=== PATIENT | male | born 1935 | race Caucasian/White ===

== ENCOUNTER 2022-07-01 12:34 | Inpatient (IN) | payer MEDICARE, BC ==
[~2022-07-01] VITALS: Ht 172.7 cm; Wt 94.5 kg
[2022-07-01 17:30] VITALS: BP 163/79
[2022-07-01] MEDS ORDERED: NITROGLYCERIN 0.4 MG SUBL TABLET SL PRN (17:35)
[2022-07-01] MEDS ORDERED: ALBUTEROL 90 MCG/ACT 8GM HFA INHALER INH PRN (17:35)
[2022-07-01] MEDS ORDERED: CLOPIDOGREL 75 MG TAB PO ONE (17:35)
[2022-07-01] MEDS ORDERED: OCUV1CAP4 PO (18:05)
[2022-07-01] MEDS ORDERED: ATOR80TA59 PO (18:05)
[2022-07-01] MEDS ORDERED: SYST1SOL OU (18:05)
[2022-07-01] MEDS ORDERED: CLOP75TA2 PO (18:05)
[2022-07-01] MEDS ORDERED: FINA5TAB2 PO (18:05)
[2022-07-01] MEDS ORDERED: STIO1AER INH (18:05)
[2022-07-01] MEDS ORDERED: ACET500T15 PO (18:05)
[2022-07-01] MEDS ORDERED: OMEP-173 PO (18:05)
[2022-07-01] MEDS ORDERED: NITR4TASL SL (18:05)
[2022-07-01] MEDS ORDERED: ASPI81TA26 PO (18:05)
[2022-07-01] MEDS ORDERED: SITA50TAB PO (18:05)
[2022-07-01] MEDS ORDERED: PROAAER10 INH (18:05)
[2022-07-01] MEDS ORDERED: METO25TA4 PO (18:05)
[2022-07-01] MEDS ORDERED: CENT1TAB PO (18:05)
[2022-07-01] MEDS ORDERED: DOCU100C16 PO (18:05)
[2022-07-01] MEDS ORDERED: SYST0.6S OU (18:05)
[2022-07-01] MEDS ORDERED: FLOM0.4C39 PO (18:05)
[2022-07-01] MEDS ORDERED: AMLO1TAB24 PO (18:05)
[2022-07-01] MEDS ORDERED: HOME MED LIST COMPLETE! XX SCH (18:10)
[2022-07-01 19:31] VITALS: BP 138/62
[2022-07-01] MEDS: METOPROLOL TART 25 MG TABLET PO SCH (20:56)
[2022-07-01] MEDS: NYSTATIN 500,000 U/5 ML SUSP UDC SS SCH (20:56)
[2022-07-01] MEDS: INSULIN LISPRO (NovoLOG) PER UNIT SC SCH (20:57)
[2022-07-02 06:13] VITALS: BP 144/58
[2022-07-02 06:20] LABS: APPEARANCE, URINE MANUAL HAZY (CLEAR); COLOR, URINE MANUAL YELLOW (YELLOW)
[2022-07-02 06:21] LABS: BILIRUBIN, URINE MANUAL NEGATIVE (NEGATIVE); BLOOD URINE MANUAL POSITIVE (NEGATIVE); GLUCOSE, URINE (UA) MANUAL 1+(100 MG/DL) mg/dL (NEGATIVE); KETONE, URINE MANUAL NEGATIVE (NEGATIVE); NITRITE, URINE MANUAL NEGATIVE (NEGATIVE); PROTEIN, URINE MANUAL 3+ mg/dL (NEGATIVE); UROBILINOGEN, URINE MANUAL NORMAL (NORMAL)
[2022-07-02 06:22] LABS: LEUKOCYTE ESTERASE, URINE MAN POSITIVE (NEGATIVE)
[2022-07-02 06:52] LABS: BASO % 0.2 % (0.0-1.0); EOS # 0.1 10^3/uL (0.0-0.5); EOS % 1.7 % (0.0-3.0); HEMATOCRIT 29.5 % (42.0-52.0); HEMOGLOBIN 10.3 g/dl (13.5-17.5); LYMPH # 0.9 10^3/uL (1.5-5.0); MEAN CORPUSCULAR HEMOGLOBIN 30.5 pg (27.0-33.0); MEAN CORPUSCULAR HGB CONC 34.9 g/dl (32.0-36.5); MEAN CORPUSCULAR VOLUME 87.3 fl (80.0-96.0); MONO # 0.1 10^3/uL (0.0-0.8); MONO % 2.9 % (2.0-8.0); NEUTROPHILS # 3.7 10^3/uL (1.5-8.5); NEUTROPHILS % 76.4 % (36.0-66.0); PLATELET COUNT, AUTOMATED 127 10^3/uL (150-450); RED BLOOD COUNT 3.38 10^6/uL (4.30-6.10); WHITE BLOOD COUNT 4.8 10^3/uL (4.0-10.0)
[2022-07-02 07:08] LABS: BACTERIA, URINE SMALL AMOUNT; HYALINE CAST, URINE NONE SEEN /lpf (0-1); SQUAMOUS EPITHELIAL CELL URINE SMALL AMOUNT /hpf (SMALL AMT)
[2022-07-02 07:10] LABS: TRANSITIONAL EPI CELLS, URINE SMALL AMOUNT /hpf
[2022-07-02 07:26] LABS: CALCIUM LEVEL 9.1 MG/DL (8.8-10.2); CREATININE FOR GFR 1.45 MG/DL (0.70-1.30); GLOMERULAR FILTRATION RATE 49.1 (>35); POTASSIUM SERUM 3.6 MEQ/L (3.5-5.1)
[2022-07-02] MEDS: FINASTERIDE 5MG TAB PO SCH (08:50)
[2022-07-02] MEDS: FOLIC ACID 1MG TAB PO SCH (08:50)
[2022-07-02] MEDS: OMEPRAZOLE 20MG CAP PO SCH (08:50)
[2022-07-02] MEDS: CLOPIDOGREL 75 MG TAB PO SCH (08:50)
[2022-07-02] MEDS: NYSTATIN 500,000 U/5 ML SUSP UDC SS SCH ×2 (08:50→21:24)
[2022-07-02] MEDS: amLODIPine 5 MG TAB PO SCH (08:50)
[2022-07-02] MEDS: SITagliptin 50 MG TAB (JANUVIA) PO SCH (08:50)
[2022-07-02] MEDS: METOPROLOL TART 25 MG TABLET PO SCH ×2 (08:51→21:24)
[2022-07-02] MEDS: INSULIN LISPRO (NovoLOG) PER UNIT SC SCH ×4 (08:52→21:00)
[2022-07-02] MEDS ORDERED: ENTER DRUG NAME HERE (PATIENT'S OWN MED) OU SCH (09:00)
[2022-07-02] MEDS: TAMSULOSIN 0.4 MG CAP PO SCH (09:37)
[2022-07-02] MEDS: MULTIVITAMINS/MINERALS THERAP 1 TAB PO SCH (09:37)
[2022-07-02] MEDS: ATORVASTATIN 20 MG TAB PO SCH (09:37)
[2022-07-02] MEDS: ASPIRIN 81MG ENTERIC TABLET PO SCH (09:37)
[2022-07-02] MEDS: OCUVITE 1 TAB PO SCH (12:10)
[2022-07-02] MEDS: POLYVINYL ALCOHOL OPHTH SOLN 15 ML(LIQUITEARS) OU SCH ×3 (12:10→21:25)
[2022-07-02] MEDS: STIOLTO RESPIMAT INH SCH (12:11)
[2022-07-02 14:00] VITALS: BP 155/72
[2022-07-02 20:00] VITALS: BP 163/77
[2022-07-03 06:00] VITALS: BP 161/80
[2022-07-03] MEDS ORDERED: FLEET OIL RETENTION ENEMA PR PRN (07:35)
[2022-07-03] MEDS: STIOLTO RESPIMAT INH SCH (09:00)
[2022-07-03] MEDS: FOLIC ACID 1MG TAB PO SCH (09:58)
[2022-07-03] MEDS: TAMSULOSIN 0.4 MG CAP PO SCH (09:58)
[2022-07-03] MEDS: amLODIPine 5 MG TAB PO SCH (09:58)
[2022-07-03] MEDS: CLOPIDOGREL 75 MG TAB PO SCH (09:58)
[2022-07-03] MEDS: LACTOBACILLUS ACIDOPHILUS CAP (BACID) PO SCH ×2 (09:58→17:13)
[2022-07-03] MEDS: ATORVASTATIN 20 MG TAB PO SCH (09:58)
[2022-07-03] MEDS: OMEPRAZOLE 20MG CAP PO SCH (09:58)
[2022-07-03] MEDS: MULTIVITAMINS/MINERALS THERAP 1 TAB PO SCH (09:58)
[2022-07-03] MEDS: FINASTERIDE 5MG TAB PO SCH (09:58)
[2022-07-03] MEDS: INSULIN LISPRO (NovoLOG) PER UNIT SC SCH ×4 (09:58→20:38)
[2022-07-03] MEDS: POLYVINYL ALCOHOL OPHTH SOLN 15 ML(LIQUITEARS) OU SCH ×3 (09:59→20:42)
[2022-07-03] MEDS: OCUVITE 1 TAB PO SCH (09:59)
[2022-07-03] MEDS: NYSTATIN 500,000 U/5 ML SUSP UDC SS SCH ×2 (09:59→20:42)
[2022-07-03] MEDS: METOPROLOL TART 25 MG TABLET PO SCH ×2 (09:59→20:42)
[2022-07-03] MEDS: ASPIRIN 81MG ENTERIC TABLET PO SCH (09:59)
[2022-07-03] MEDS: SITagliptin 50 MG TAB (JANUVIA) PO SCH (09:59)
[2022-07-03] MEDS: SIMETHICONE 40MG/0.6ML DROPS 30ML PO SCH ×2 (12:20→17:14)
[2022-07-03 14:04] VITALS: BP 156/82
[2022-07-03 20:27] VITALS: BP 160/76
[2022-07-03] MEDS: MIRALAX *UNIT DOSE* 17GM PACKET PO PRN (20:43)
[2022-07-04 05:32] VITALS: BP 150/76
[2022-07-04] MEDS: OMEPRAZOLE 20MG CAP PO SCH (08:16)
[2022-07-04] MEDS: MIRALAX *UNIT DOSE* 17GM PACKET PO PRN (08:16)
[2022-07-04] MEDS: MULTIVITAMINS/MINERALS THERAP 1 TAB PO SCH (08:16)
[2022-07-04] MEDS: LACTOBACILLUS ACIDOPHILUS CAP (BACID) PO SCH ×2 (08:16→17:12)
[2022-07-04] MEDS: METOPROLOL TART 25 MG TABLET PO SCH ×2 (08:16→20:35)
[2022-07-04] MEDS: FINASTERIDE 5MG TAB PO SCH (08:16)
[2022-07-04] MEDS: TAMSULOSIN 0.4 MG CAP PO SCH (08:16)
[2022-07-04] MEDS: ASPIRIN 81MG ENTERIC TABLET PO SCH ×2 (08:16→10:52)
[2022-07-04] MEDS: OCUVITE 1 TAB PO SCH (08:16)
[2022-07-04] MEDS: FOLIC ACID 1MG TAB PO SCH (08:16)
[2022-07-04] MEDS: SITagliptin 50 MG TAB (JANUVIA) PO SCH (08:16)
[2022-07-04] MEDS: POLYVINYL ALCOHOL OPHTH SOLN 15 ML(LIQUITEARS) OU SCH ×3 (08:17→20:35)
[2022-07-04] MEDS: NYSTATIN 500,000 U/5 ML SUSP UDC SS SCH ×2 (08:17→20:35)
[2022-07-04] MEDS: ATORVASTATIN 20 MG TAB PO SCH (08:17)
[2022-07-04] MEDS: amLODIPine 5 MG TAB PO SCH (08:17)
[2022-07-04] MEDS: INSULIN LISPRO (NovoLOG) PER UNIT SC SCH ×4 (08:17→20:30)
[2022-07-04] MEDS: CLOPIDOGREL 75 MG TAB PO SCH ×2 (08:17→10:52)
[2022-07-04] MEDS: SIMETHICONE 40MG/0.6ML DROPS 30ML PO SCH ×3 (08:18→17:12)
[2022-07-04] MEDS: STIOLTO RESPIMAT INH SCH (08:19)
[2022-07-04 11:35] LABS: HEMATOCRIT 30.5 % (42.0-52.0); HEMOGLOBIN 10.4 g/dl (13.5-17.5); MEAN CORPUSCULAR HEMOGLOBIN 29.9 pg (27.0-33.0); MEAN CORPUSCULAR HGB CONC 34.1 g/dl (32.0-36.5); MEAN CORPUSCULAR VOLUME 87.6 fl (80.0-96.0); PLATELET COUNT, AUTOMATED 131 10^3/uL (150-450); RED BLOOD COUNT 3.48 10^6/uL (4.30-6.10); WHITE BLOOD COUNT 3.4 10^3/uL (4.0-10.0)
[2022-07-04 14:00] VITALS: BP 144/73
[2022-07-04 20:00] VITALS: BP 160/75
[2022-07-05 06:00] VITALS: BP_SYST 129; BP_SYST 158; BP_DIAS 62; BP_DIAS 88
[2022-07-05] MEDS: ACETAMINOPHEN TAB 650MG DOSE (2X325MG) PO PRN ×2 (07:13→16:40)
[2022-07-05 07:32] LABS: HEMATOCRIT 30.4 % (42.0-52.0); HEMOGLOBIN 10.5 g/dl (13.5-17.5); MEAN CORPUSCULAR HEMOGLOBIN 29.8 pg (27.0-33.0); MEAN CORPUSCULAR HGB CONC 34.5 g/dl (32.0-36.5); MEAN CORPUSCULAR VOLUME 86.4 fl (80.0-96.0); PLATELET COUNT, AUTOMATED 137 10^3/uL (150-450); RED BLOOD COUNT 3.52 10^6/uL (4.30-6.10); WHITE BLOOD COUNT 2.9 10^3/uL (4.0-10.0)
[2022-07-05] MEDS: amLODIPine 5 MG TAB PO SCH (08:53)
[2022-07-05] MEDS: MULTIVITAMINS/MINERALS THERAP 1 TAB PO SCH (08:53)
[2022-07-05] MEDS: INSULIN LISPRO (NovoLOG) PER UNIT SC SCH ×4 (08:53→19:41)
[2022-07-05] MEDS: TAMSULOSIN 0.4 MG CAP PO SCH (08:53)
[2022-07-05] MEDS: NYSTATIN 500,000 U/5 ML SUSP UDC SS SCH ×2 (08:53→20:25)
[2022-07-05] MEDS: OCUVITE 1 TAB PO SCH (08:53)
[2022-07-05] MEDS: SITagliptin 50 MG TAB (JANUVIA) PO SCH (08:53)
[2022-07-05] MEDS: OMEPRAZOLE 20MG CAP PO SCH (08:53)
[2022-07-05] MEDS: FOLIC ACID 1MG TAB PO SCH (08:54)
[2022-07-05] MEDS: METOPROLOL TART 25 MG TABLET PO SCH ×2 (08:54→20:26)
[2022-07-05] MEDS: LACTOBACILLUS ACIDOPHILUS CAP (BACID) PO SCH ×2 (08:54→16:56)
[2022-07-05] MEDS: STIOLTO RESPIMAT INH SCH (08:54)
[2022-07-05] MEDS: FINASTERIDE 5MG TAB PO SCH (08:54)
[2022-07-05] MEDS: ATORVASTATIN 20 MG TAB PO SCH (08:54)
[2022-07-05] MEDS: SIMETHICONE 40MG/0.6ML DROPS 30ML PO SCH ×3 (08:55→17:11)
[2022-07-05] MEDS: POLYVINYL ALCOHOL OPHTH SOLN 15 ML(LIQUITEARS) OU SCH ×3 (09:00→20:26)
[2022-07-05 14:00] VITALS: BP 145/88
[2022-07-05 20:00] VITALS: BP 129/60
[2022-07-06 06:00] VITALS: BP 158/84
[2022-07-06 07:29] LABS: HEMATOCRIT 33.5 % (42.0-52.0); MEAN CORPUSCULAR HEMOGLOBIN 29.1 pg (27.0-33.0); MEAN CORPUSCULAR HGB CONC 32.8 g/dl (32.0-36.5); MEAN CORPUSCULAR VOLUME 88.6 fl (80.0-96.0); PLATELET COUNT, AUTOMATED 130 10^3/uL (150-450); RED BLOOD COUNT 3.78 10^6/uL (4.30-6.10); WHITE BLOOD COUNT 3.6 10^3/uL (4.0-10.0)
[2022-07-06 07:52] LABS: BILIRUBIN,TOTAL 0.8 MG/DL (0.2-1.0); CALCIUM LEVEL 9.1 MG/DL (8.8-10.2); CREATININE FOR GFR 1.82 MG/DL (0.70-1.30); GLOMERULAR FILTRATION RATE 37.8 (>35); POTASSIUM SERUM 4.1 MEQ/L (3.5-5.1); TOTAL PROTEIN 6.9 GM/DL (6.4-8.2)
[2022-07-06] MEDS: ATORVASTATIN 20 MG TAB PO SCH (08:41)
[2022-07-06] MEDS: SITagliptin 50 MG TAB (JANUVIA) PO SCH (08:41)
[2022-07-06] MEDS: MULTIVITAMINS/MINERALS THERAP 1 TAB PO SCH (08:41)
[2022-07-06] MEDS: FOLIC ACID 1MG TAB PO SCH (08:41)
[2022-07-06] MEDS: INSULIN LISPRO (NovoLOG) PER UNIT SC SCH ×4 (08:41→21:00)
[2022-07-06] MEDS: TAMSULOSIN 0.4 MG CAP PO SCH (08:41)
[2022-07-06] MEDS: ASPIRIN 81MG ENTERIC TABLET PO SCH (08:41)
[2022-07-06] MEDS: OMEPRAZOLE 20MG CAP PO SCH (08:41)
[2022-07-06] MEDS: LACTOBACILLUS ACIDOPHILUS CAP (BACID) PO SCH ×2 (08:42→17:06)
[2022-07-06] MEDS: CLOPIDOGREL 75 MG TAB PO SCH (08:42)
[2022-07-06] MEDS: OCUVITE 1 TAB PO SCH (08:42)
[2022-07-06] MEDS: NYSTATIN 500,000 U/5 ML SUSP UDC SS SCH ×2 (08:42→21:21)
[2022-07-06] MEDS: FINASTERIDE 5MG TAB PO SCH (08:42)
[2022-07-06] MEDS: amLODIPine 5 MG TAB PO SCH (08:43)
[2022-07-06] MEDS: METOPROLOL TART 25 MG TABLET PO SCH ×2 (08:43→21:21)
[2022-07-06] MEDS: POLYVINYL ALCOHOL OPHTH SOLN 15 ML(LIQUITEARS) OU SCH ×3 (08:44→21:21)
[2022-07-06] MEDS: SIMETHICONE 40MG/0.6ML DROPS 30ML PO SCH ×3 (08:44→17:06)
[2022-07-06] MEDS: STIOLTO RESPIMAT INH SCH (09:00)
[2022-07-06 14:00] VITALS: BP 142/71
[2022-07-06 20:48] VITALS: BP 144/74
[2022-07-07 05:41] VITALS: BP 145/80
[2022-07-07 07:45] VITALS: BP 120/70
[2022-07-07] MEDS: SIMETHICONE 40MG/0.6ML DROPS 30ML PO SCH ×3 (08:00→17:25)
[2022-07-07] MEDS: TAMSULOSIN 0.4 MG CAP PO SCH (08:51)
[2022-07-07] MEDS: FOLIC ACID 1MG TAB PO SCH (08:51)
[2022-07-07] MEDS: LACTOBACILLUS ACIDOPHILUS CAP (BACID) PO SCH ×2 (08:51→17:24)
[2022-07-07] MEDS: amLODIPine 5 MG TAB PO SCH (08:51)
[2022-07-07] MEDS: CLOPIDOGREL 75 MG TAB PO SCH (08:51)
[2022-07-07] MEDS: METOPROLOL TART 25 MG TABLET PO SCH ×2 (08:51→21:22)
[2022-07-07] MEDS: MULTIVITAMINS/MINERALS THERAP 1 TAB PO SCH (08:51)
[2022-07-07] MEDS: SITagliptin 50 MG TAB (JANUVIA) PO SCH (08:51)
[2022-07-07] MEDS: MIRALAX *UNIT DOSE* 17GM PACKET PO PRN (08:51)
[2022-07-07] MEDS: BISACODYL 10 MG SUPP PR PRN (08:51)
[2022-07-07] MEDS: OCUVITE 1 TAB PO SCH (08:52)
[2022-07-07] MEDS: FINASTERIDE 5MG TAB PO SCH (08:52)
[2022-07-07] MEDS: NYSTATIN 500,000 U/5 ML SUSP UDC SS SCH ×2 (08:52→21:21)
[2022-07-07] MEDS: ATORVASTATIN 20 MG TAB PO SCH (08:52)
[2022-07-07] MEDS: INSULIN LISPRO (NovoLOG) PER UNIT SC SCH ×4 (08:52→21:00)
[2022-07-07] MEDS: OMEPRAZOLE 20MG CAP PO SCH (08:52)
[2022-07-07] MEDS: ASPIRIN 81MG ENTERIC TABLET PO SCH (08:52)
[2022-07-07] MEDS: STIOLTO RESPIMAT INH SCH (08:53)
[2022-07-07] MEDS: POLYVINYL ALCOHOL OPHTH SOLN 15 ML(LIQUITEARS) OU SCH ×3 (08:53→21:00)
[2022-07-07] MEDS: ACETAMINOPHEN TAB 650MG DOSE (2X325MG) PO PRN (08:55)
[2022-07-07 10:20] VITALS: BP 143/69
[2022-07-07] MEDS: NYSTATIN 100,000 UNITS/GM TOPICAL PWD 15 GM TOP SCH (11:59)
[2022-07-07 14:00] VITALS: BP 137/65
[2022-07-07] MEDS: metroNIDAZOLE (FLAGYL) 500MG TABLET PO SCH ×2 (14:24→21:21)
[2022-07-07] MEDS: DOXYCYCLINE HYCLATE 100MG TABLET PO SCH ×2 (14:24→21:22)
[2022-07-07 17:32] VITALS: BP 156/79
[2022-07-07] MEDS: ALBUTEROL SULFATE 2.5 MG/0.5 ML INH NEB SOLN NEB SCH (17:38)
[2022-07-07 19:38] VITALS: BP 134/66
[2022-07-07 20:41] LABS: CALCIUM LEVEL 8.7 MG/DL (8.8-10.2); CREATININE FOR GFR 2.04 MG/DL (0.70-1.30); GLOMERULAR FILTRATION RATE 33.1 (>35); MAGNESIUM LEVEL 1.7 MG/DL (1.8-2.4); POTASSIUM SERUM 3.9 MEQ/L (3.5-5.1)
[2022-07-07 21:07] LABS: CK-MB VALUE MASS < 1.0 NG/ML (<3.6); CPK CREATINE PHOSPHOKINASE 42 U/L (39-308); MB/CK RELATIVE INDEX 2.38 (< OR =4)
[2022-07-07] MEDS ORDERED: LR 1,000 ML IV ONE (21:30)
[2022-07-07] MEDS ORDERED: MAG SULF 1GM/100ML (MAG RUN) 1 GM in IV 1 EA IV ONE (21:30)
[2022-07-08] MEDS: ALBUTEROL SULFATE 2.5 MG/0.5 ML INH NEB SOLN NEB SCH ×5 (02:30→23:23)
[2022-07-08] MEDS: metroNIDAZOLE (FLAGYL) 500MG TABLET PO SCH ×3 (05:03→21:04)
[2022-07-08 05:40] LABS: TOTAL PROTEIN,RANDOM URINE 269.4 MG/DL (0.0-12.0)
[2022-07-08 06:24] LABS: HEMATOCRIT 24.7 % (42.0-52.0); HEMOGLOBIN 8.7 g/dl (13.5-17.5); LYMPH # 0.3 10^3/uL (1.5-5.0); LYMPH % 20.9 % (24.0-44.0); MEAN CORPUSCULAR HEMOGLOBIN 30.5 pg (27.0-33.0); MEAN CORPUSCULAR HGB CONC 35.2 g/dl (32.0-36.5); MEAN CORPUSCULAR VOLUME 86.7 fl (80.0-96.0); MONO # 0.1 10^3/uL (0.0-0.8); MONO % 5.5 % (2.0-8.0); NEUTROPHILS # 1.1 10^3/uL (1.5-8.5); NEUTROPHILS % 66.2 % (36.0-66.0); RED BLOOD COUNT 2.85 10^6/uL (4.30-6.10); WHITE BLOOD COUNT 1.6 10^3/uL (4.0-10.0)
[2022-07-08 06:26] LABS: PLATELET COUNT, AUTOMATED 86 10^3/uL (150-450)
[2022-07-08 07:08] LABS: CALCIUM LEVEL 8.7 MG/DL (8.8-10.2); CREATININE FOR GFR 1.84 MG/DL (0.70-1.30); GLOMERULAR FILTRATION RATE 37.3 (>35); MAGNESIUM LEVEL 1.9 MG/DL (1.8-2.4); POTASSIUM SERUM 3.9 MEQ/L (3.5-5.1)
[2022-07-08] MEDS: MULTIVITAMINS/MINERALS THERAP 1 TAB PO SCH (07:25)
[2022-07-08] MEDS: amLODIPine 5 MG TAB PO SCH (07:25)
[2022-07-08] MEDS: SITagliptin 50 MG TAB (JANUVIA) PO SCH (07:25)
[2022-07-08] MEDS: CLOPIDOGREL 75 MG TAB PO SCH (07:25)
[2022-07-08] MEDS: FINASTERIDE 5MG TAB PO SCH (07:25)
[2022-07-08] MEDS: OCUVITE 1 TAB PO SCH (07:25)
[2022-07-08] MEDS: NYSTATIN 500,000 U/5 ML SUSP UDC SS SCH ×2 (07:25→21:04)
[2022-07-08] MEDS: TAMSULOSIN 0.4 MG CAP PO SCH (07:25)
[2022-07-08] MEDS: INSULIN LISPRO (NovoLOG) PER UNIT SC SCH ×4 (07:25→20:58)
[2022-07-08] MEDS: OMEPRAZOLE 20MG CAP PO SCH (07:25)
[2022-07-08] MEDS: ASPIRIN 81MG ENTERIC TABLET PO SCH (07:25)
[2022-07-08] MEDS: SIMETHICONE 40MG/0.6ML DROPS 30ML PO SCH ×3 (07:26→17:02)
[2022-07-08] MEDS: LACTOBACILLUS ACIDOPHILUS CAP (BACID) PO SCH ×2 (07:26→17:02)
[2022-07-08] MEDS: FOLIC ACID 1MG TAB PO SCH (07:26)
[2022-07-08] MEDS: DOXYCYCLINE HYCLATE 100MG TABLET PO SCH ×2 (07:26→21:04)
[2022-07-08] MEDS: METOPROLOL TART 25 MG TABLET PO SCH ×2 (07:26→21:05)
[2022-07-08] MEDS: ATORVASTATIN 20 MG TAB PO SCH (07:26)
[2022-07-08] MEDS: STIOLTO RESPIMAT INH SCH (07:27)
[2022-07-08] MEDS: NYSTATIN 100,000 UNITS/GM TOPICAL PWD 15 GM TOP SCH (07:27)
[2022-07-08] MEDS: POLYVINYL ALCOHOL OPHTH SOLN 15 ML(LIQUITEARS) OU SCH ×3 (07:27→20:58)
[2022-07-08 14:00] VITALS: BP 129/61
[2022-07-08 20:00] VITALS: BP 165/76
[2022-07-09] MEDS: metroNIDAZOLE (FLAGYL) 500MG TABLET PO SCH ×3 (05:05→21:08)
[2022-07-09 06:00] VITALS: BP 134/68
[2022-07-09] MEDS: ALBUTEROL SULFATE 2.5 MG/0.5 ML INH NEB SOLN NEB SCH ×3 (07:29→23:26)
[2022-07-09] MEDS: OCUVITE 1 TAB PO SCH (08:29)
[2022-07-09] MEDS: METOPROLOL TART 25 MG TABLET PO SCH ×2 (08:29→21:08)
[2022-07-09] MEDS: INSULIN LISPRO (NovoLOG) PER UNIT SC SCH ×4 (08:29→19:51)
[2022-07-09] MEDS: FINASTERIDE 5MG TAB PO SCH (08:29)
[2022-07-09] MEDS: ASPIRIN 81MG ENTERIC TABLET PO SCH (08:29)
[2022-07-09] MEDS: DOXYCYCLINE HYCLATE 100MG TABLET PO SCH ×2 (08:29→21:08)
[2022-07-09] MEDS: FOLIC ACID 1MG TAB PO SCH (08:29)
[2022-07-09] MEDS: SITagliptin 50 MG TAB (JANUVIA) PO SCH (08:30)
[2022-07-09] MEDS: ATORVASTATIN 20 MG TAB PO SCH (08:30)
[2022-07-09] MEDS: amLODIPine 5 MG TAB PO SCH (08:30)
[2022-07-09] MEDS: MULTIVITAMINS/MINERALS THERAP 1 TAB PO SCH (08:30)
[2022-07-09] MEDS: CLOPIDOGREL 75 MG TAB PO SCH (08:30)
[2022-07-09] MEDS: OMEPRAZOLE 20MG CAP PO SCH (08:30)
[2022-07-09] MEDS: NYSTATIN 500,000 U/5 ML SUSP UDC SS SCH ×2 (08:30→21:08)
[2022-07-09] MEDS: LACTOBACILLUS ACIDOPHILUS CAP (BACID) PO SCH ×2 (08:30→17:18)
[2022-07-09] MEDS: STIOLTO RESPIMAT INH SCH (08:30)
[2022-07-09] MEDS: TAMSULOSIN 0.4 MG CAP PO SCH (08:31)
[2022-07-09] MEDS: POLYVINYL ALCOHOL OPHTH SOLN 15 ML(LIQUITEARS) OU SCH ×3 (08:31→20:34)
[2022-07-09] MEDS: NYSTATIN 100,000 UNITS/GM TOPICAL PWD 15 GM TOP SCH (08:31)
[2022-07-09] MEDS: SIMETHICONE 40MG/0.6ML DROPS 30ML PO SCH ×3 (08:31→17:18)
[2022-07-09 14:00] VITALS: BP 140/66
[2022-07-09 20:00] VITALS: BP 148/75
[2022-07-10] MEDS: metroNIDAZOLE (FLAGYL) 500MG TABLET PO SCH ×3 (05:17→21:03)
[2022-07-10 06:00] VITALS: BP 149/70
[2022-07-10 07:05] LABS: BASO % 0.3 % (0.0-1.0); EOS % 0.9 % (0.0-3.0); HEMOGLOBIN 9.5 g/dl (13.5-17.5); LYMPH # 0.7 10^3/uL (1.5-5.0); LYMPH % 21.2 % (24.0-44.0); MEAN CORPUSCULAR HEMOGLOBIN 29.5 pg (27.0-33.0); MEAN CORPUSCULAR HGB CONC 33.9 g/dl (32.0-36.5); MONO # 0.2 10^3/uL (0.0-0.8); MONO % 5.1 % (2.0-8.0); NEUTROPHILS # 2.3 10^3/uL (1.5-8.5); NEUTROPHILS % 71.2 % (36.0-66.0); PLATELET COUNT, AUTOMATED 103 10^3/uL (150-450); RED BLOOD COUNT 3.22 10^6/uL (4.30-6.10); WHITE BLOOD COUNT 3.2 10^3/uL (4.0-10.0)
[2022-07-10 07:44] LABS: ALBUMIN 2.6 GM/DL (3.2-5.2); BILIRUBIN,TOTAL 0.6 MG/DL (0.2-1.0); CALCIUM LEVEL 9.2 MG/DL (8.8-10.2); CREATININE FOR GFR 1.63 MG/DL (0.70-1.30); GLOMERULAR FILTRATION RATE 42.9 (>35); POTASSIUM SERUM 4.1 MEQ/L (3.5-5.1); TOTAL PROTEIN 5.9 GM/DL (6.4-8.2)
[2022-07-10] MEDS: POLYVINYL ALCOHOL OPHTH SOLN 15 ML(LIQUITEARS) OU SCH ×3 (09:00→21:00)
[2022-07-10] MEDS: INSULIN LISPRO (NovoLOG) PER UNIT SC SCH ×4 (09:11→21:00)
[2022-07-10] MEDS: NYSTATIN 500,000 U/5 ML SUSP UDC SS SCH ×2 (09:11→21:02)
[2022-07-10] MEDS: ATORVASTATIN 20 MG TAB PO SCH (09:12)
[2022-07-10] MEDS: FOLIC ACID 1MG TAB PO SCH (09:12)
[2022-07-10] MEDS: OMEPRAZOLE 20MG CAP PO SCH (09:12)
[2022-07-10] MEDS: LACTOBACILLUS ACIDOPHILUS CAP (BACID) PO SCH ×2 (09:12→17:20)
[2022-07-10] MEDS: ASPIRIN 81MG ENTERIC TABLET PO SCH (09:12)
[2022-07-10] MEDS: SITagliptin 50 MG TAB (JANUVIA) PO SCH (09:12)
[2022-07-10] MEDS: DOXYCYCLINE HYCLATE 100MG TABLET PO SCH ×2 (09:12→21:03)
[2022-07-10] MEDS: OCUVITE 1 TAB PO SCH (09:12)
[2022-07-10] MEDS: FINASTERIDE 5MG TAB PO SCH (09:12)
[2022-07-10] MEDS: MULTIVITAMINS/MINERALS THERAP 1 TAB PO SCH (09:12)
[2022-07-10] MEDS: CLOPIDOGREL 75 MG TAB PO SCH (09:12)
[2022-07-10] MEDS: TAMSULOSIN 0.4 MG CAP PO SCH (09:12)
[2022-07-10] MEDS: amLODIPine 5 MG TAB PO SCH (09:13)
[2022-07-10] MEDS: SIMETHICONE 40MG/0.6ML DROPS 30ML PO SCH ×3 (09:13→17:20)
[2022-07-10] MEDS: METOPROLOL TART 25 MG TABLET PO SCH ×2 (09:13→21:03)
[2022-07-10] MEDS: NYSTATIN 100,000 UNITS/GM TOPICAL PWD 15 GM TOP SCH (09:14)
[2022-07-10] MEDS: STIOLTO RESPIMAT INH SCH (09:14)
[2022-07-10] MEDS: BACLOFEN 5MG PER 1/2 TABLET PO SCH ×2 (09:41→21:03)
[2022-07-10] MEDS: ALBUTEROL SULFATE 2.5 MG/0.5 ML INH NEB SOLN NEB SCH ×2 (09:59→15:15)
[2022-07-10 14:00] VITALS: BP 117/60
[2022-07-10 20:00] VITALS: BP 147/70
[2022-07-11] MEDS: ALBUTEROL SULFATE 2.5 MG/0.5 ML INH NEB SOLN NEB SCH ×3 (00:03→23:27)
[2022-07-11] MEDS: metroNIDAZOLE (FLAGYL) 500MG TABLET PO SCH ×3 (05:30→20:38)
[2022-07-11 06:00] VITALS: BP 136/65
[2022-07-11] MEDS: SIMETHICONE 40MG/0.6ML DROPS 30ML PO SCH ×3 (08:00→17:29)
[2022-07-11] MEDS: LACTOBACILLUS ACIDOPHILUS CAP (BACID) PO SCH ×2 (08:54→17:28)
[2022-07-11] MEDS: INSULIN LISPRO (NovoLOG) PER UNIT SC SCH ×4 (08:54→20:35)
[2022-07-11] MEDS: TAMSULOSIN 0.4 MG CAP PO SCH (08:55)
[2022-07-11] MEDS: SITagliptin 50 MG TAB (JANUVIA) PO SCH (08:55)
[2022-07-11] MEDS: ASPIRIN 81MG ENTERIC TABLET PO SCH (08:55)
[2022-07-11] MEDS: BACLOFEN 5MG PER 1/2 TABLET PO SCH ×2 (08:55→20:35)
[2022-07-11] MEDS: FOLIC ACID 1MG TAB PO SCH (08:55)
[2022-07-11] MEDS: ATORVASTATIN 20 MG TAB PO SCH (08:55)
[2022-07-11] MEDS: OCUVITE 1 TAB PO SCH (08:56)
[2022-07-11] MEDS: OMEPRAZOLE 20MG CAP PO SCH (08:56)
[2022-07-11] MEDS: amLODIPine 5 MG TAB PO SCH (08:56)
[2022-07-11] MEDS: METOPROLOL TART 25 MG TABLET PO SCH ×2 (08:56→20:35)
[2022-07-11] MEDS: CLOPIDOGREL 75 MG TAB PO SCH (08:56)
[2022-07-11] MEDS: MULTIVITAMINS/MINERALS THERAP 1 TAB PO SCH (08:57)
[2022-07-11] MEDS: STIOLTO RESPIMAT INH SCH (08:57)
[2022-07-11] MEDS: NYSTATIN 500,000 U/5 ML SUSP UDC SS SCH ×2 (08:57→20:35)
[2022-07-11] MEDS: DOXYCYCLINE HYCLATE 100MG TABLET PO SCH ×2 (08:57→20:35)
[2022-07-11] MEDS: FINASTERIDE 5MG TAB PO SCH (08:57)
[2022-07-11] MEDS: POLYVINYL ALCOHOL OPHTH SOLN 15 ML(LIQUITEARS) OU SCH ×4 (08:58→20:44)
[2022-07-11] MEDS: NYSTATIN 100,000 UNITS/GM TOPICAL PWD 15 GM TOP SCH (08:58)
[2022-07-11 14:00] VITALS: BP 115/58
[2022-07-11] MEDS: TRIAMCINOLONE ACET 0.1% CREAM 80 GM TOP SCH (14:49)
[2022-07-11 20:00] VITALS: BP 150/70
[2022-07-12] MEDS: metroNIDAZOLE (FLAGYL) 500MG TABLET PO SCH ×3 (05:34→20:45)
[2022-07-12 06:00] VITALS: BP 147/72
[2022-07-12] MEDS: ALBUTEROL SULFATE 2.5 MG/0.5 ML INH NEB SOLN NEB SCH ×3 (07:19→23:14)
[2022-07-12] MEDS: INSULIN LISPRO (NovoLOG) PER UNIT SC SCH ×4 (07:50→20:10)
[2022-07-12] MEDS: LACTOBACILLUS ACIDOPHILUS CAP (BACID) PO SCH ×2 (07:52→17:50)
[2022-07-12] MEDS: FOLIC ACID 1MG TAB PO SCH (07:53)
[2022-07-12] MEDS: TAMSULOSIN 0.4 MG CAP PO SCH (07:53)
[2022-07-12] MEDS: SITagliptin 50 MG TAB (JANUVIA) PO SCH (07:53)
[2022-07-12] MEDS: SIMETHICONE 40MG/0.6ML DROPS 30ML PO SCH ×3 (07:53→17:50)
[2022-07-12] MEDS: ASPIRIN 81MG ENTERIC TABLET PO SCH (07:53)
[2022-07-12] MEDS: ATORVASTATIN 20 MG TAB PO SCH (07:54)
[2022-07-12] MEDS: OCUVITE 1 TAB PO SCH (07:54)
[2022-07-12] MEDS: OMEPRAZOLE 20MG CAP PO SCH (07:54)
[2022-07-12] MEDS: BACLOFEN 5MG PER 1/2 TABLET PO SCH ×2 (07:54→20:45)
[2022-07-12] MEDS: CLOPIDOGREL 75 MG TAB PO SCH (07:54)
[2022-07-12] MEDS: DOXYCYCLINE HYCLATE 100MG TABLET PO SCH ×2 (07:55→20:45)
[2022-07-12] MEDS: FINASTERIDE 5MG TAB PO SCH (07:55)
[2022-07-12] MEDS: MULTIVITAMINS/MINERALS THERAP 1 TAB PO SCH (07:55)
[2022-07-12] MEDS: NYSTATIN 100,000 UNITS/GM TOPICAL PWD 15 GM TOP SCH (07:56)
[2022-07-12] MEDS: TRIAMCINOLONE ACET 0.1% CREAM 80 GM TOP SCH (07:56)
[2022-07-12] MEDS: POLYVINYL ALCOHOL OPHTH SOLN 15 ML(LIQUITEARS) OU SCH ×3 (07:57→20:11)
[2022-07-12] MEDS: NYSTATIN 500,000 U/5 ML SUSP UDC SS SCH ×2 (07:57→20:45)
[2022-07-12] MEDS: amLODIPine 5 MG TAB PO SCH (07:58)
[2022-07-12] MEDS: METOPROLOL TART 25 MG TABLET PO SCH ×2 (07:58→20:45)
[2022-07-12] MEDS: STIOLTO RESPIMAT INH SCH (09:09)
[2022-07-12 14:00] VITALS: BP 139/66
[2022-07-12 19:20] VITALS: BP 142/72
[2022-07-13 05:20] VITALS: BP 149/72
[2022-07-13] MEDS: metroNIDAZOLE (FLAGYL) 500MG TABLET PO SCH ×3 (05:23→21:19)
[2022-07-13] MEDS: ALBUTEROL SULFATE 2.5 MG/0.5 ML INH NEB SOLN NEB SCH ×3 (07:13→23:18)
[2022-07-13] MEDS: POLYVINYL ALCOHOL OPHTH SOLN 15 ML(LIQUITEARS) OU SCH ×3 (09:00→20:19)
[2022-07-13] MEDS: SITagliptin 50 MG TAB (JANUVIA) PO SCH (09:21)
[2022-07-13] MEDS: LACTOBACILLUS ACIDOPHILUS CAP (BACID) PO SCH ×2 (09:21→17:11)
[2022-07-13] MEDS: NYSTATIN 500,000 U/5 ML SUSP UDC SS SCH ×2 (09:21→20:18)
[2022-07-13] MEDS: ASPIRIN 81MG ENTERIC TABLET PO SCH (09:21)
[2022-07-13] MEDS: CLOPIDOGREL 75 MG TAB PO SCH (09:21)
[2022-07-13] MEDS: ATORVASTATIN 20 MG TAB PO SCH (09:21)
[2022-07-13] MEDS: FOLIC ACID 1MG TAB PO SCH (09:21)
[2022-07-13] MEDS: INSULIN LISPRO (NovoLOG) PER UNIT SC SCH ×4 (09:21→20:19)
[2022-07-13] MEDS: OMEPRAZOLE 20MG CAP PO SCH (09:22)
[2022-07-13] MEDS: BACLOFEN 5MG PER 1/2 TABLET PO SCH ×2 (09:22→20:18)
[2022-07-13] MEDS: FINASTERIDE 5MG TAB PO SCH (09:22)
[2022-07-13] MEDS: amLODIPine 5 MG TAB PO SCH (09:22)
[2022-07-13] MEDS: DOXYCYCLINE HYCLATE 100MG TABLET PO SCH ×2 (09:22→20:18)
[2022-07-13] MEDS: MULTIVITAMINS/MINERALS THERAP 1 TAB PO SCH (09:22)
[2022-07-13] MEDS: TAMSULOSIN 0.4 MG CAP PO SCH (09:22)
[2022-07-13] MEDS: METOPROLOL TART 25 MG TABLET PO SCH ×2 (09:23→20:18)
[2022-07-13] MEDS: TRIAMCINOLONE ACET 0.1% CREAM 80 GM TOP SCH (09:24)
[2022-07-13] MEDS: NYSTATIN 100,000 UNITS/GM TOPICAL PWD 15 GM TOP SCH (09:24)
[2022-07-13] MEDS: STIOLTO RESPIMAT INH SCH (09:25)
[2022-07-13] MEDS: SIMETHICONE 40MG/0.6ML DROPS 30ML PO SCH ×3 (09:25→17:13)
[2022-07-13] MEDS: OCUVITE 1 TAB PO SCH (09:33)
[2022-07-13] MEDS ORDERED: SODIUM CHLORIDE 1 GM TAB PO ONE ×2 (12:25→16:00)
[2022-07-13 14:00] VITALS: BP 158/71
[2022-07-13 20:00] VITALS: BP 130/74
[2022-07-14] MEDS: metroNIDAZOLE (FLAGYL) 500MG TABLET PO SCH (05:21)
[2022-07-14 06:00] VITALS: BP 142/73
[2022-07-14] MEDS: ALBUTEROL SULFATE 2.5 MG/0.5 ML INH NEB SOLN NEB SCH ×3 (07:13→23:35)
[2022-07-14 07:32] LABS: ALBUMIN 2.4 GM/DL (3.2-5.2); BILIRUBIN,TOTAL 0.5 MG/DL (0.2-1.0); CALCIUM LEVEL 9.1 MG/DL (8.8-10.2); CREATININE FOR GFR 1.44 MG/DL (0.70-1.30); GLOMERULAR FILTRATION RATE 49.5 (>35); POTASSIUM SERUM 4.1 MEQ/L (3.5-5.1); TOTAL PROTEIN 5.7 GM/DL (6.4-8.2)
[2022-07-14] MEDS: POLYVINYL ALCOHOL OPHTH SOLN 15 ML(LIQUITEARS) OU SCH ×3 (09:00→20:24)
[2022-07-14] MEDS: INSULIN LISPRO (NovoLOG) PER UNIT SC SCH ×4 (09:22→19:50)
[2022-07-14] MEDS: NYSTATIN 500,000 U/5 ML SUSP UDC SS SCH ×2 (09:27→20:23)
[2022-07-14] MEDS: FOLIC ACID 1MG TAB PO SCH (09:27)
[2022-07-14] MEDS: BACLOFEN 5MG PER 1/2 TABLET PO SCH ×2 (09:28→20:23)
[2022-07-14] MEDS: MULTIVITAMINS/MINERALS THERAP 1 TAB PO SCH (09:28)
[2022-07-14] MEDS: ATORVASTATIN 20 MG TAB PO SCH (09:28)
[2022-07-14] MEDS: ASPIRIN 81MG ENTERIC TABLET PO SCH (09:28)
[2022-07-14] MEDS: FINASTERIDE 5MG TAB PO SCH (09:28)
[2022-07-14] MEDS: DOXYCYCLINE HYCLATE 100MG TABLET PO SCH (09:28)
[2022-07-14] MEDS: LACTOBACILLUS ACIDOPHILUS CAP (BACID) PO SCH ×2 (09:28→18:18)
[2022-07-14] MEDS: CLOPIDOGREL 75 MG TAB PO SCH (09:28)
[2022-07-14] MEDS: OCUVITE 1 TAB PO SCH (09:28)
[2022-07-14] MEDS: OMEPRAZOLE 20MG CAP PO SCH (09:28)
[2022-07-14] MEDS: SITagliptin 50 MG TAB (JANUVIA) PO SCH (09:28)
[2022-07-14] MEDS: amLODIPine 5 MG TAB PO SCH (09:28)
[2022-07-14] MEDS: TAMSULOSIN 0.4 MG CAP PO SCH (09:28)
[2022-07-14] MEDS: METOPROLOL TART 25 MG TABLET PO SCH ×2 (09:29→20:24)
[2022-07-14] MEDS: TRIAMCINOLONE ACET 0.1% CREAM 80 GM TOP SCH (09:33)
[2022-07-14] MEDS: NYSTATIN 100,000 UNITS/GM TOPICAL PWD 15 GM TOP SCH (09:34)
[2022-07-14] MEDS: STIOLTO RESPIMAT INH SCH (09:34)
[2022-07-14] MEDS: SIMETHICONE 40MG/0.6ML DROPS 30ML PO SCH ×3 (09:34→18:18)
[2022-07-14 14:00] VITALS: BP 141/74
[2022-07-14 20:00] VITALS: BP 132/66
[2022-07-15 06:00] VITALS: BP 156/80
[2022-07-15] MEDS: ALBUTEROL SULFATE 2.5 MG/0.5 ML INH NEB SOLN NEB SCH ×3 (07:22→23:45)
[2022-07-15] MEDS: OMEPRAZOLE 20MG CAP PO SCH (09:07)
[2022-07-15] MEDS: OCUVITE 1 TAB PO SCH (09:07)
[2022-07-15] MEDS: FOLIC ACID 1MG TAB PO SCH (09:07)
[2022-07-15] MEDS: NYSTATIN 500,000 U/5 ML SUSP UDC SS SCH ×2 (09:07→21:03)
[2022-07-15] MEDS: MULTIVITAMINS/MINERALS THERAP 1 TAB PO SCH (09:07)
[2022-07-15] MEDS: INSULIN LISPRO (NovoLOG) PER UNIT SC SCH ×4 (09:07→21:04)
[2022-07-15] MEDS: BACLOFEN 5MG PER 1/2 TABLET PO SCH ×2 (09:07→21:03)
[2022-07-15] MEDS: LACTOBACILLUS ACIDOPHILUS CAP (BACID) PO SCH ×2 (09:07→17:52)
[2022-07-15] MEDS: ASPIRIN 81MG ENTERIC TABLET PO SCH (09:07)
[2022-07-15] MEDS: FINASTERIDE 5MG TAB PO SCH (09:08)
[2022-07-15] MEDS: SITagliptin 50 MG TAB (JANUVIA) PO SCH (09:08)
[2022-07-15] MEDS: TAMSULOSIN 0.4 MG CAP PO SCH (09:08)
[2022-07-15] MEDS: CLOPIDOGREL 75 MG TAB PO SCH (09:08)
[2022-07-15] MEDS: ATORVASTATIN 20 MG TAB PO SCH (09:08)
[2022-07-15] MEDS: amLODIPine 5 MG TAB PO SCH (09:08)
[2022-07-15] MEDS: METOPROLOL TART 25 MG TABLET PO SCH ×2 (09:09→21:04)
[2022-07-15] MEDS: STIOLTO RESPIMAT INH SCH (09:09)
[2022-07-15] MEDS: TRIAMCINOLONE ACET 0.1% CREAM 80 GM TOP SCH (09:10)
[2022-07-15] MEDS: POLYVINYL ALCOHOL OPHTH SOLN 15 ML(LIQUITEARS) OU SCH ×3 (09:10→21:00)
[2022-07-15] MEDS: SIMETHICONE 40MG/0.6ML DROPS 30ML PO SCH ×3 (09:10→17:52)
[2022-07-15] MEDS: NYSTATIN 100,000 UNITS/GM TOPICAL PWD 15 GM TOP SCH (09:10)
[2022-07-15 14:00] VITALS: BP 116/55
[2022-07-15 19:43] VITALS: BP 139/68
[2022-07-15] MEDS: MIRALAX *UNIT DOSE* 17GM PACKET PO PRN (21:30)
[2022-07-16 05:43] VITALS: BP 154/70
[2022-07-16] MEDS: BISACODYL 10 MG SUPP PR PRN (06:18)
[2022-07-16] MEDS: ALBUTEROL SULFATE 2.5 MG/0.5 ML INH NEB SOLN NEB SCH ×3 (07:24→23:00)
[2022-07-16] MEDS: TAMSULOSIN 0.4 MG CAP PO SCH (09:34)
[2022-07-16] MEDS: INSULIN LISPRO (NovoLOG) PER UNIT SC SCH ×4 (09:34→20:49)
[2022-07-16] MEDS: MIRALAX *UNIT DOSE* 17GM PACKET PO SCH (09:34)
[2022-07-16] MEDS: OCUVITE 1 TAB PO SCH (09:35)
[2022-07-16] MEDS: ATORVASTATIN 20 MG TAB PO SCH (09:35)
[2022-07-16] MEDS: FOLIC ACID 1MG TAB PO SCH (09:35)
[2022-07-16] MEDS: LACTOBACILLUS ACIDOPHILUS CAP (BACID) PO SCH ×2 (09:35→17:52)
[2022-07-16] MEDS: CLOPIDOGREL 75 MG TAB PO SCH (09:35)
[2022-07-16] MEDS: MULTIVITAMINS/MINERALS THERAP 1 TAB PO SCH (09:35)
[2022-07-16] MEDS: ASPIRIN 81MG ENTERIC TABLET PO SCH (09:35)
[2022-07-16] MEDS: SITagliptin 50 MG TAB (JANUVIA) PO SCH (09:35)
[2022-07-16] MEDS: FINASTERIDE 5MG TAB PO SCH (09:35)
[2022-07-16] MEDS: BACLOFEN 5MG PER 1/2 TABLET PO SCH ×2 (09:35→20:49)
[2022-07-16] MEDS: NYSTATIN 100,000 UNITS/GM TOPICAL PWD 15 GM TOP SCH (09:35)
[2022-07-16] MEDS: OMEPRAZOLE 20MG CAP PO SCH (09:36)
[2022-07-16] MEDS: METOPROLOL TART 25 MG TABLET PO SCH ×2 (09:36→20:49)
[2022-07-16] MEDS: amLODIPine 5 MG TAB PO SCH (09:36)
[2022-07-16] MEDS: SIMETHICONE 40MG/0.6ML DROPS 30ML PO SCH ×3 (09:36→17:52)
[2022-07-16] MEDS: NYSTATIN 500,000 U/5 ML SUSP UDC SS SCH (09:39)
[2022-07-16] MEDS: TRIAMCINOLONE ACET 0.1% CREAM 80 GM TOP SCH (09:59)
[2022-07-16] MEDS: POLYVINYL ALCOHOL OPHTH SOLN 15 ML(LIQUITEARS) OU SCH ×3 (09:59→20:50)
[2022-07-16] MEDS: STIOLTO RESPIMAT INH SCH (10:00)
[2022-07-16 14:00] VITALS: BP 126/64
[2022-07-16 20:10] VITALS: BP 128/69
[2022-07-17 05:42] VITALS: BP 128/84
[2022-07-17] MEDS: ALBUTEROL SULFATE 2.5 MG/0.5 ML INH NEB SOLN NEB SCH ×3 (07:06→23:17)
[2022-07-17] MEDS: SIMETHICONE 40MG/0.6ML DROPS 30ML PO SCH ×3 (08:00→17:40)
[2022-07-17] MEDS: STIOLTO RESPIMAT INH SCH (09:00)
[2022-07-17] MEDS: MIRALAX *UNIT DOSE* 17GM PACKET PO SCH (09:00)
[2022-07-17] MEDS: POLYVINYL ALCOHOL OPHTH SOLN 15 ML(LIQUITEARS) OU SCH ×4 (09:00→20:16)
[2022-07-17] MEDS: MULTIVITAMINS/MINERALS THERAP 1 TAB PO SCH (09:12)
[2022-07-17] MEDS: INSULIN LISPRO (NovoLOG) PER UNIT SC SCH ×4 (09:12→20:16)
[2022-07-17] MEDS: FINASTERIDE 5MG TAB PO SCH (09:12)
[2022-07-17] MEDS: ATORVASTATIN 20 MG TAB PO SCH (09:12)
[2022-07-17] MEDS: ASPIRIN 81MG ENTERIC TABLET PO SCH (09:12)
[2022-07-17] MEDS: OMEPRAZOLE 20MG CAP PO SCH (09:13)
[2022-07-17] MEDS: BACLOFEN 5MG PER 1/2 TABLET PO SCH ×2 (09:13→20:17)
[2022-07-17] MEDS: LACTOBACILLUS ACIDOPHILUS CAP (BACID) PO SCH ×2 (09:13→17:39)
[2022-07-17] MEDS: TAMSULOSIN 0.4 MG CAP PO SCH (09:13)
[2022-07-17] MEDS: FOLIC ACID 1MG TAB PO SCH (09:13)
[2022-07-17] MEDS: SITagliptin 50 MG TAB (JANUVIA) PO SCH (09:13)
[2022-07-17] MEDS: OCUVITE 1 TAB PO SCH (09:13)
[2022-07-17] MEDS: amLODIPine 5 MG TAB PO SCH (09:14)
[2022-07-17] MEDS: CLOPIDOGREL 75 MG TAB PO SCH (09:14)
[2022-07-17] MEDS: METOPROLOL TART 25 MG TABLET PO SCH ×2 (09:14→20:17)
[2022-07-17] MEDS: NYSTATIN 100,000 UNITS/GM TOPICAL PWD 15 GM TOP SCH (09:15)
[2022-07-17] MEDS: TRIAMCINOLONE ACET 0.1% CREAM 80 GM TOP SCH (09:16)
[2022-07-17 10:34] LABS: CALCIUM LEVEL 9.6 MG/DL (8.8-10.2); CREATININE FOR GFR 1.63 MG/DL (0.70-1.30); GLOMERULAR FILTRATION RATE 42.9 (>35); POTASSIUM SERUM 4.3 MEQ/L (3.5-5.1)
[2022-07-17 14:00] VITALS: BP 130/68
[2022-07-17 20:00] VITALS: BP 144/75
[2022-07-18 06:00] VITALS: BP 134/71
[2022-07-18] MEDS: ALBUTEROL SULFATE 2.5 MG/0.5 ML INH NEB SOLN NEB SCH ×3 (07:18→23:36)
[2022-07-18] MEDS: POLYVINYL ALCOHOL OPHTH SOLN 15 ML(LIQUITEARS) OU SCH ×3 (09:00→20:19)
[2022-07-18] MEDS: OCUVITE 1 TAB PO SCH (09:18)
[2022-07-18] MEDS: ATORVASTATIN 20 MG TAB PO SCH (09:18)
[2022-07-18] MEDS: SITagliptin 50 MG TAB (JANUVIA) PO SCH (09:18)
[2022-07-18] MEDS: FOLIC ACID 1MG TAB PO SCH (09:18)
[2022-07-18] MEDS: OMEPRAZOLE 20MG CAP PO SCH (09:18)
[2022-07-18] MEDS: BACLOFEN 5MG PER 1/2 TABLET PO SCH ×2 (09:18→20:22)
[2022-07-18] MEDS: FINASTERIDE 5MG TAB PO SCH (09:18)
[2022-07-18] MEDS: TAMSULOSIN 0.4 MG CAP PO SCH (09:18)
[2022-07-18] MEDS: CLOPIDOGREL 75 MG TAB PO SCH (09:18)
[2022-07-18] MEDS: ASPIRIN 81MG ENTERIC TABLET PO SCH (09:18)
[2022-07-18] MEDS: LACTOBACILLUS ACIDOPHILUS CAP (BACID) PO SCH ×2 (09:19→17:29)
[2022-07-18] MEDS: MULTIVITAMINS/MINERALS THERAP 1 TAB PO SCH (09:19)
[2022-07-18] MEDS: METOPROLOL TART 25 MG TABLET PO SCH ×2 (09:19→20:23)
[2022-07-18] MEDS: MIRALAX *UNIT DOSE* 17GM PACKET PO SCH (09:19)
[2022-07-18] MEDS: amLODIPine 5 MG TAB PO SCH (09:19)
[2022-07-18] MEDS: SIMETHICONE 40MG/0.6ML DROPS 30ML PO SCH ×3 (09:19→17:33)
[2022-07-18] MEDS: TRIAMCINOLONE ACET 0.1% CREAM 80 GM TOP SCH (09:20)
[2022-07-18] MEDS: STIOLTO RESPIMAT INH SCH (09:20)
[2022-07-18] MEDS: NYSTATIN 100,000 UNITS/GM TOPICAL PWD 15 GM TOP SCH (09:21)
[2022-07-18] MEDS: INSULIN LISPRO (NovoLOG) PER UNIT SC SCH ×4 (09:21→20:19)
[2022-07-18 14:00] VITALS: BP 143/74
[2022-07-18 20:00] VITALS: BP 146/70
[2022-07-19 06:00] VITALS: BP 142/78
[2022-07-19] MEDS: ALBUTEROL SULFATE 2.5 MG/0.5 ML INH NEB SOLN NEB SCH ×3 (07:11→16:00)
[2022-07-19] MEDS: INSULIN LISPRO (NovoLOG) PER UNIT SC SCH ×4 (08:30→20:30)
[2022-07-19] MEDS: POLYVINYL ALCOHOL OPHTH SOLN 15 ML(LIQUITEARS) OU SCH ×3 (09:00→20:32)
[2022-07-19] MEDS: ASPIRIN 81MG ENTERIC TABLET PO SCH (10:31)
[2022-07-19] MEDS: LACTOBACILLUS ACIDOPHILUS CAP (BACID) PO SCH ×2 (10:31→17:13)
[2022-07-19] MEDS: BACLOFEN 5MG PER 1/2 TABLET PO SCH ×2 (10:31→20:29)
[2022-07-19] MEDS: ATORVASTATIN 20 MG TAB PO SCH (10:31)
[2022-07-19] MEDS: FINASTERIDE 5MG TAB PO SCH (10:31)
[2022-07-19] MEDS: MULTIVITAMINS/MINERALS THERAP 1 TAB PO SCH (10:32)
[2022-07-19] MEDS: OCUVITE 1 TAB PO SCH (10:32)
[2022-07-19] MEDS: OMEPRAZOLE 20MG CAP PO SCH (10:32)
[2022-07-19] MEDS: MIRALAX *UNIT DOSE* 17GM PACKET PO SCH (10:32)
[2022-07-19] MEDS: FOLIC ACID 1MG TAB PO SCH (10:33)
[2022-07-19] MEDS: CLOPIDOGREL 75 MG TAB PO SCH (10:33)
[2022-07-19] MEDS: METOPROLOL TART 25 MG TABLET PO SCH ×2 (10:33→20:30)
[2022-07-19] MEDS: SITagliptin 50 MG TAB (JANUVIA) PO SCH (10:33)
[2022-07-19] MEDS: TAMSULOSIN 0.4 MG CAP PO SCH (10:33)
[2022-07-19] MEDS: amLODIPine 5 MG TAB PO SCH (10:34)
[2022-07-19] MEDS: STIOLTO RESPIMAT INH SCH (10:35)
[2022-07-19] MEDS: SIMETHICONE 40MG/0.6ML DROPS 30ML PO SCH ×3 (10:35→17:13)
[2022-07-19] MEDS: TRIAMCINOLONE ACET 0.1% CREAM 80 GM TOP SCH (10:36)
[2022-07-19] MEDS: NYSTATIN 100,000 UNITS/GM TOPICAL PWD 15 GM TOP SCH (10:37)
[2022-07-19 14:00] VITALS: BP 136/67
[2022-07-19 20:10] VITALS: BP_SYST 143; BP_DIAS 70; BP_DIAS 78
[2022-07-20 05:26] VITALS: BP 142/68
[2022-07-20] MEDS: ALBUTEROL SULFATE 2.5 MG/0.5 ML INH NEB SOLN NEB SCH ×4 (05:44→16:00)
[2022-07-20] MEDS: ATORVASTATIN 20 MG TAB PO SCH (09:01)
[2022-07-20] MEDS: FOLIC ACID 1MG TAB PO SCH (09:01)
[2022-07-20] MEDS: BACLOFEN 5MG PER 1/2 TABLET PO SCH ×2 (09:01→20:25)
[2022-07-20] MEDS: INSULIN LISPRO (NovoLOG) PER UNIT SC SCH ×4 (09:01→20:25)
[2022-07-20] MEDS: MULTIVITAMINS/MINERALS THERAP 1 TAB PO SCH (09:02)
[2022-07-20] MEDS: CLOPIDOGREL 75 MG TAB PO SCH (09:02)
[2022-07-20] MEDS: OMEPRAZOLE 20MG CAP PO SCH (09:02)
[2022-07-20] MEDS: MIRALAX *UNIT DOSE* 17GM PACKET PO SCH (09:02)
[2022-07-20] MEDS: LACTOBACILLUS ACIDOPHILUS CAP (BACID) PO SCH ×2 (09:03→17:21)
[2022-07-20] MEDS: FINASTERIDE 5MG TAB PO SCH (09:03)
[2022-07-20] MEDS: METOPROLOL TART 25 MG TABLET PO SCH ×2 (09:03→20:25)
[2022-07-20] MEDS: OCUVITE 1 TAB PO SCH (09:03)
[2022-07-20] MEDS: amLODIPine 5 MG TAB PO SCH (09:03)
[2022-07-20] MEDS: ASPIRIN 81MG ENTERIC TABLET PO SCH (09:03)
[2022-07-20] MEDS: SITagliptin 50 MG TAB (JANUVIA) PO SCH (09:03)
[2022-07-20] MEDS: TAMSULOSIN 0.4 MG CAP PO SCH (09:04)
[2022-07-20] MEDS: SIMETHICONE 40MG/0.6ML DROPS 30ML PO SCH ×3 (09:04→17:22)
[2022-07-20] MEDS: POLYVINYL ALCOHOL OPHTH SOLN 15 ML(LIQUITEARS) OU SCH ×3 (09:04→20:25)
[2022-07-20] MEDS: STIOLTO RESPIMAT INH SCH (09:04)
[2022-07-20] MEDS: NYSTATIN 100,000 UNITS/GM TOPICAL PWD 15 GM TOP SCH (09:05)
[2022-07-20] MEDS: TRIAMCINOLONE ACET 0.1% CREAM 80 GM TOP SCH (09:05)
[2022-07-20] MEDS: BISACODYL 5 MG TAB PO SCH (10:03)
[2022-07-20 14:00] VITALS: BP 127/59
[2022-07-20 20:06] VITALS: BP 131/68
[2022-07-20] MEDS: BISACODYL 10 MG SUPP PR PRN (20:40)
[2022-07-21] MEDS: ALBUTEROL SULFATE 2.5 MG/0.5 ML INH NEB SOLN NEB SCH ×4 (00:03→23:56)
[2022-07-21 05:40] VITALS: BP 129/68
[2022-07-21 06:29] LABS: CALCIUM LEVEL 8.9 MG/DL (8.8-10.2); CREATININE FOR GFR 1.61 MG/DL (0.70-1.30); GLOMERULAR FILTRATION RATE 43.5 (>35); POTASSIUM SERUM 4.2 MEQ/L (3.5-5.1)
[2022-07-21] MEDS: POLYVINYL ALCOHOL OPHTH SOLN 15 ML(LIQUITEARS) OU SCH ×3 (09:00→21:00)
[2022-07-21] MEDS: MIRALAX *UNIT DOSE* 17GM PACKET PO SCH (09:38)
[2022-07-21] MEDS: OCUVITE 1 TAB PO SCH (09:39)
[2022-07-21] MEDS: FOLIC ACID 1MG TAB PO SCH (09:39)
[2022-07-21] MEDS: CLOPIDOGREL 75 MG TAB PO SCH (09:39)
[2022-07-21] MEDS: FINASTERIDE 5MG TAB PO SCH (09:39)
[2022-07-21] MEDS: METOPROLOL TART 25 MG TABLET PO SCH ×2 (09:39→21:02)
[2022-07-21] MEDS: MULTIVITAMINS/MINERALS THERAP 1 TAB PO SCH (09:39)
[2022-07-21] MEDS: ASPIRIN 81MG ENTERIC TABLET PO SCH (09:39)
[2022-07-21] MEDS: SITagliptin 50 MG TAB (JANUVIA) PO SCH (09:39)
[2022-07-21] MEDS: BACLOFEN 5MG PER 1/2 TABLET PO SCH (09:39)
[2022-07-21] MEDS: amLODIPine 5 MG TAB PO SCH (09:39)
[2022-07-21] MEDS: OMEPRAZOLE 20MG CAP PO SCH (09:40)
[2022-07-21] MEDS: ATORVASTATIN 20 MG TAB PO SCH (09:40)
[2022-07-21] MEDS: LACTOBACILLUS ACIDOPHILUS CAP (BACID) PO SCH ×2 (09:40→18:08)
[2022-07-21] MEDS: SIMETHICONE 40MG/0.6ML DROPS 30ML PO SCH ×3 (09:40→18:08)
[2022-07-21] MEDS: BISACODYL 5 MG TAB PO SCH (09:40)
[2022-07-21] MEDS: STIOLTO RESPIMAT INH SCH (09:41)
[2022-07-21] MEDS: TAMSULOSIN 0.4 MG CAP PO SCH (09:41)
[2022-07-21] MEDS: INSULIN LISPRO (NovoLOG) PER UNIT SC SCH ×4 (09:42→21:00)
[2022-07-21] MEDS: TRIAMCINOLONE ACET 0.1% CREAM 80 GM TOP SCH (09:42)
[2022-07-21] MEDS: NYSTATIN 100,000 UNITS/GM TOPICAL PWD 15 GM TOP SCH (09:43)
[2022-07-21 14:00] VITALS: BP 123/58
[2022-07-21 20:15] VITALS: BP 136/60
[2022-07-21] MEDS: ACETAMINOPHEN TAB 650MG DOSE (2X325MG) PO PRN (21:01)
[2022-07-22 05:37] VITALS: BP 132/68
[2022-07-22] MEDS: ACETAMINOPHEN TAB 650MG DOSE (2X325MG) PO PRN ×3 (06:07→22:35)
[2022-07-22] MEDS ORDERED: ALBUTEROL 90 MCG/ACT 8GM HFA INHALER INH PRN (07:00)
[2022-07-22] MEDS ORDERED: diphenhydrAMINE 50MG/ML VIAL (J1200) IV PRN (07:01)
[2022-07-22] MEDS ORDERED: ALBUTEROL SULFATE 2.5 MG/0.5 ML INH NEB SOLN INH PRN (07:01)
[2022-07-22] MEDS ORDERED: EPINEPHrine INJ 1 MG/ML 1ML AMP IM PRN (07:01)
[2022-07-22] MEDS ORDERED: methylPREDNISolone 125MG 2ML VIAL IV PRN (07:01)
[2022-07-22] MEDS: MIRALAX *UNIT DOSE* 17GM PACKET PO SCH (07:58)
[2022-07-22] MEDS: INSULIN LISPRO (NovoLOG) PER UNIT SC SCH ×4 (07:59→20:37)
[2022-07-22] MEDS: TAMSULOSIN 0.4 MG CAP PO SCH (08:00)
[2022-07-22] MEDS: METOPROLOL TART 25 MG TABLET PO SCH ×2 (08:00→20:43)
[2022-07-22] MEDS: MULTIVITAMINS/MINERALS THERAP 1 TAB PO SCH (08:00)
[2022-07-22] MEDS: ATORVASTATIN 20 MG TAB PO SCH (08:00)
[2022-07-22] MEDS: amLODIPine 5 MG TAB PO SCH (08:00)
[2022-07-22] MEDS: OCUVITE 1 TAB PO SCH (08:00)
[2022-07-22] MEDS: BISACODYL 5 MG TAB PO SCH (08:00)
[2022-07-22] MEDS: LACTOBACILLUS ACIDOPHILUS CAP (BACID) PO SCH ×2 (08:00→17:04)
[2022-07-22] MEDS: FINASTERIDE 5MG TAB PO SCH (08:00)
[2022-07-22] MEDS: OMEPRAZOLE 20MG CAP PO SCH (08:00)
[2022-07-22] MEDS: ALBUTEROL SULFATE 2.5 MG/0.5 ML INH NEB SOLN NEB SCH (08:00)
[2022-07-22] MEDS: FOLIC ACID 1MG TAB PO SCH (08:00)
[2022-07-22] MEDS: POLYVINYL ALCOHOL OPHTH SOLN 15 ML(LIQUITEARS) OU SCH ×3 (08:01→20:38)
[2022-07-22] MEDS: SITagliptin 50 MG TAB (JANUVIA) PO SCH (08:01)
[2022-07-22] MEDS: SIMETHICONE 40MG/0.6ML DROPS 30ML PO SCH ×3 (08:01→17:04)
[2022-07-22] MEDS: ASPIRIN 81MG ENTERIC TABLET PO SCH (08:01)
[2022-07-22] MEDS: STIOLTO RESPIMAT INH SCH (08:01)
[2022-07-22] MEDS: CLOPIDOGREL 75 MG TAB PO SCH (08:01)
[2022-07-22] MEDS: TRIAMCINOLONE ACET 0.1% CREAM 80 GM TOP SCH (08:02)
[2022-07-22] MEDS: NYSTATIN 100,000 UNITS/GM TOPICAL PWD 15 GM TOP SCH (08:02)
[2022-07-22] MEDS ORDERED: BEBTELOVIMAB 175MG 2ML VIAL (EUA) IV ONE (10:00)
[2022-07-22] MEDS ORDERED: NS 1,000 ML IV SCH (10:00)
[2022-07-22 11:29] VITALS: BP 116/59
[2022-07-22 12:37] VITALS: BP 130/60
[2022-07-22 12:38] VITALS: BP 130/60
[2022-07-22 14:00] VITALS: BP 106/59
[2022-07-22] MEDS: ALBUTEROL 90 MCG/ACT 8GM HFA INHALER INH SCH ×2 (16:00→19:44)
[2022-07-22 20:00] VITALS: BP 127/65
[2022-07-23] MEDS: ALBUTEROL 90 MCG/ACT 8GM HFA INHALER INH SCH ×6 (04:00→20:10)
[2022-07-23 06:00] VITALS: BP 108/58
[2022-07-23] MEDS: SIMETHICONE 40MG/0.6ML DROPS 30ML PO SCH ×3 (08:00→17:17)
[2022-07-23 08:27] LABS: BASO % 0.4 % (0.0-1.0); EOS % 0.8 % (0.0-3.0); HEMATOCRIT 27.9 % (42.0-52.0); HEMOGLOBIN 9.2 g/dl (13.5-17.5); LYMPH # 0.6 10^3/uL (1.5-5.0); LYMPH % 23.6 % (24.0-44.0); MEAN CORPUSCULAR HEMOGLOBIN 29.8 pg (27.0-33.0); MEAN CORPUSCULAR VOLUME 90.3 fl (80.0-96.0); MONO # 0.1 10^3/uL (0.0-0.8); MONO % 4.5 % (2.0-8.0); NEUTROPHILS # 1.7 10^3/uL (1.5-8.5); NEUTROPHILS % 69.9 % (36.0-66.0); PLATELET COUNT, AUTOMATED 114 10^3/uL (150-450); RED BLOOD COUNT 3.09 10^6/uL (4.30-6.10); WHITE BLOOD COUNT 2.5 10^3/uL (4.0-10.0)
[2022-07-23 09:04] LABS: ALBUMIN 2.7 GM/DL (3.2-5.2); BILIRUBIN,TOTAL 0.5 MG/DL (0.2-1.0); CALCIUM LEVEL 9.4 MG/DL (8.8-10.2); CREATININE FOR GFR 1.72 MG/DL (0.70-1.30); GLOMERULAR FILTRATION RATE 40.3 (>35); POTASSIUM SERUM 3.8 MEQ/L (3.5-5.1); TOTAL PROTEIN 6.6 GM/DL (6.4-8.2)
[2022-07-23] MEDS: MIRALAX *UNIT DOSE* 17GM PACKET PO SCH (09:30)
[2022-07-23] MEDS: amLODIPine 5 MG TAB PO SCH (09:30)
[2022-07-23] MEDS: SITagliptin 50 MG TAB (JANUVIA) PO SCH (09:30)
[2022-07-23] MEDS: ASPIRIN 81MG ENTERIC TABLET PO SCH (09:30)
[2022-07-23] MEDS: FOLIC ACID 1MG TAB PO SCH (09:30)
[2022-07-23] MEDS: MULTIVITAMINS/MINERALS THERAP 1 TAB PO SCH (09:30)
[2022-07-23] MEDS: INSULIN LISPRO (NovoLOG) PER UNIT SC SCH ×4 (09:30→21:00)
[2022-07-23] MEDS: BISACODYL 5 MG TAB PO SCH (09:30)
[2022-07-23] MEDS: METOPROLOL TART 25 MG TABLET PO SCH ×2 (09:31→21:18)
[2022-07-23] MEDS: FINASTERIDE 5MG TAB PO SCH (09:31)
[2022-07-23] MEDS: CLOPIDOGREL 75 MG TAB PO SCH (09:31)
[2022-07-23] MEDS: LACTOBACILLUS ACIDOPHILUS CAP (BACID) PO SCH ×2 (09:31→17:16)
[2022-07-23] MEDS: OCUVITE 1 TAB PO SCH (09:31)
[2022-07-23] MEDS: OMEPRAZOLE 20MG CAP PO SCH (09:31)
[2022-07-23] MEDS: ATORVASTATIN 20 MG TAB PO SCH (09:31)
[2022-07-23] MEDS: TAMSULOSIN 0.4 MG CAP PO SCH (09:31)
[2022-07-23] MEDS: NYSTATIN 100,000 UNITS/GM TOPICAL PWD 15 GM TOP SCH (09:32)
[2022-07-23] MEDS: STIOLTO RESPIMAT INH SCH (09:32)
[2022-07-23] MEDS: POLYVINYL ALCOHOL OPHTH SOLN 15 ML(LIQUITEARS) OU SCH ×3 (09:32→21:00)
[2022-07-23] MEDS: TRIAMCINOLONE ACET 0.1% CREAM 80 GM TOP SCH (09:32)
[2022-07-23 14:00] VITALS: BP 123/64
[2022-07-23 20:00] VITALS: BP 118/63
[2022-07-24] MEDS: ALBUTEROL 90 MCG/ACT 8GM HFA INHALER INH SCH ×6 (04:00→21:55)
[2022-07-24 06:00] VITALS: BP 128/63
[2022-07-24] MEDS: POLYVINYL ALCOHOL OPHTH SOLN 15 ML(LIQUITEARS) OU SCH ×3 (09:00→20:54)
[2022-07-24] MEDS: ATORVASTATIN 20 MG TAB PO SCH (10:07)
[2022-07-24] MEDS: INSULIN LISPRO (NovoLOG) PER UNIT SC SCH ×4 (10:07→21:00)
[2022-07-24] MEDS: METOPROLOL TART 25 MG TABLET PO SCH ×2 (10:08→20:54)
[2022-07-24] MEDS: FINASTERIDE 5MG TAB PO SCH (10:08)
[2022-07-24] MEDS: MIRALAX *UNIT DOSE* 17GM PACKET PO SCH (10:08)
[2022-07-24] MEDS: BISACODYL 5 MG TAB PO SCH (10:09)
[2022-07-24] MEDS: OCUVITE 1 TAB PO SCH (10:09)
[2022-07-24] MEDS: MULTIVITAMINS/MINERALS THERAP 1 TAB PO SCH (10:09)
[2022-07-24] MEDS: OMEPRAZOLE 20MG CAP PO SCH (10:09)
[2022-07-24] MEDS: CLOPIDOGREL 75 MG TAB PO SCH (10:09)
[2022-07-24] MEDS: ASPIRIN 81MG ENTERIC TABLET PO SCH (10:09)
[2022-07-24] MEDS: TAMSULOSIN 0.4 MG CAP PO SCH (10:09)
[2022-07-24] MEDS: LACTOBACILLUS ACIDOPHILUS CAP (BACID) PO SCH ×2 (10:09→18:39)
[2022-07-24] MEDS: FOLIC ACID 1MG TAB PO SCH (10:09)
[2022-07-24] MEDS: SITagliptin 50 MG TAB (JANUVIA) PO SCH (10:09)
[2022-07-24] MEDS: SIMETHICONE 40MG/0.6ML DROPS 30ML PO SCH ×3 (10:10→18:39)
[2022-07-24] MEDS: amLODIPine 5 MG TAB PO SCH (10:10)
[2022-07-24] MEDS: STIOLTO RESPIMAT INH SCH (10:11)
[2022-07-24] MEDS: TRIAMCINOLONE ACET 0.1% CREAM 80 GM TOP SCH (10:12)
[2022-07-24] MEDS: NYSTATIN 100,000 UNITS/GM TOPICAL PWD 15 GM TOP SCH (10:12)
[2022-07-24 14:00] VITALS: BP 115/61
[2022-07-24 20:00] VITALS: BP 131/67
[2022-07-25] MEDS: ALBUTEROL 90 MCG/ACT 8GM HFA INHALER INH SCH ×7 (00:16→23:32)
[2022-07-25 06:00] VITALS: BP 128/66
[2022-07-25] MEDS: MULTIVITAMINS/MINERALS THERAP 1 TAB PO SCH (09:46)
[2022-07-25] MEDS: SITagliptin 50 MG TAB (JANUVIA) PO SCH (09:46)
[2022-07-25] MEDS: BISACODYL 5 MG TAB PO SCH (09:46)
[2022-07-25] MEDS: ASPIRIN 81MG ENTERIC TABLET PO SCH (09:46)
[2022-07-25] MEDS: FOLIC ACID 1MG TAB PO SCH (09:46)
[2022-07-25] MEDS: CLOPIDOGREL 75 MG TAB PO SCH (09:46)
[2022-07-25] MEDS: ATORVASTATIN 20 MG TAB PO SCH (09:46)
[2022-07-25] MEDS: LACTOBACILLUS ACIDOPHILUS CAP (BACID) PO SCH ×2 (09:46→17:05)
[2022-07-25] MEDS: TAMSULOSIN 0.4 MG CAP PO SCH (09:46)
[2022-07-25] MEDS: OMEPRAZOLE 20MG CAP PO SCH (09:46)
[2022-07-25] MEDS: MIRALAX *UNIT DOSE* 17GM PACKET PO SCH (09:46)
[2022-07-25] MEDS: INSULIN LISPRO (NovoLOG) PER UNIT SC SCH ×4 (09:47→20:56)
[2022-07-25] MEDS: SIMETHICONE 40MG/0.6ML DROPS 30ML PO SCH ×3 (09:47→17:05)
[2022-07-25] MEDS: FINASTERIDE 5MG TAB PO SCH (09:47)
[2022-07-25] MEDS: OCUVITE 1 TAB PO SCH (09:47)
[2022-07-25] MEDS: amLODIPine 5 MG TAB PO SCH (09:48)
[2022-07-25] MEDS: METOPROLOL TART 25 MG TABLET PO SCH ×2 (09:48→20:54)
[2022-07-25] MEDS: POLYVINYL ALCOHOL OPHTH SOLN 15 ML(LIQUITEARS) OU SCH ×3 (09:48→20:59)
[2022-07-25] MEDS: NYSTATIN 100,000 UNITS/GM TOPICAL PWD 15 GM TOP SCH (09:48)
[2022-07-25] MEDS: STIOLTO RESPIMAT INH SCH (09:49)
[2022-07-25] MEDS: TRIAMCINOLONE ACET 0.1% CREAM 80 GM TOP SCH (09:49)
[2022-07-25 15:12] VITALS: BP 120/59
[2022-07-25 20:00] VITALS: BP 122/60
[2022-07-26] MEDS: ALBUTEROL 90 MCG/ACT 8GM HFA INHALER INH SCH ×6 (03:30→21:17)
[2022-07-26 06:00] VITALS: BP 139/67
[2022-07-26] MEDS: FOLIC ACID 1MG TAB PO SCH (08:42)
[2022-07-26] MEDS: OMEPRAZOLE 20MG CAP PO SCH (08:42)
[2022-07-26] MEDS: MIRALAX *UNIT DOSE* 17GM PACKET PO SCH (08:42)
[2022-07-26] MEDS: LACTOBACILLUS ACIDOPHILUS CAP (BACID) PO SCH ×2 (08:42→17:31)
[2022-07-26] MEDS: INSULIN LISPRO (NovoLOG) PER UNIT SC SCH ×4 (08:42→19:50)
[2022-07-26] MEDS: CLOPIDOGREL 75 MG TAB PO SCH (08:43)
[2022-07-26] MEDS: SITagliptin 50 MG TAB (JANUVIA) PO SCH (08:43)
[2022-07-26] MEDS: BISACODYL 5 MG TAB PO SCH (08:43)
[2022-07-26] MEDS: METOPROLOL TART 25 MG TABLET PO SCH ×2 (08:43→20:25)
[2022-07-26] MEDS: MULTIVITAMINS/MINERALS THERAP 1 TAB PO SCH (08:43)
[2022-07-26] MEDS: TAMSULOSIN 0.4 MG CAP PO SCH (08:43)
[2022-07-26] MEDS: ASPIRIN 81MG ENTERIC TABLET PO SCH (08:43)
[2022-07-26] MEDS: ATORVASTATIN 20 MG TAB PO SCH (08:43)
[2022-07-26] MEDS: FINASTERIDE 5MG TAB PO SCH (08:44)
[2022-07-26] MEDS: OCUVITE 1 TAB PO SCH (08:44)
[2022-07-26] MEDS: SIMETHICONE 40MG/0.6ML DROPS 30ML PO SCH ×3 (08:44→17:31)
[2022-07-26] MEDS: amLODIPine 5 MG TAB PO SCH (08:44)
[2022-07-26] MEDS: STIOLTO RESPIMAT INH SCH (08:45)
[2022-07-26] MEDS: NYSTATIN 100,000 UNITS/GM TOPICAL PWD 15 GM TOP SCH (08:45)
[2022-07-26] MEDS: POLYVINYL ALCOHOL OPHTH SOLN 15 ML(LIQUITEARS) OU SCH ×3 (08:45→20:24)
[2022-07-26] MEDS: TRIAMCINOLONE ACET 0.1% CREAM 80 GM TOP SCH (08:45)
[2022-07-26] MEDS: ACETAMINOPHEN TAB 650MG DOSE (2X325MG) PO PRN (10:26)
[2022-07-26 14:00] VITALS: BP 132/67
[2022-07-26] MEDS: BISACODYL 10 MG SUPP PR PRN (17:32)
[2022-07-26 20:00] VITALS: BP 130/65
[2022-07-27] MEDS: RAMELTEON 8 MG TAB (ROZEREM) PO PRN (00:21)
[2022-07-27] MEDS: ALBUTEROL 90 MCG/ACT 8GM HFA INHALER INH SCH ×5 (04:00→20:06)
[2022-07-27 06:00] VITALS: BP 119/65
[2022-07-27 06:39] LABS: BASO % 0.3 % (0.0-1.0); HEMATOCRIT 25.7 % (42.0-52.0); HEMOGLOBIN 8.6 g/dl (13.5-17.5); LYMPH # 0.5 10^3/uL (1.5-5.0); LYMPH % 13.7 % (24.0-44.0); MEAN CORPUSCULAR HEMOGLOBIN 29.5 pg (27.0-33.0); MEAN CORPUSCULAR HGB CONC 33.5 g/dl (32.0-36.5); MONO # 0.2 10^3/uL (0.0-0.8); MONO % 5.1 % (2.0-8.0); NEUTROPHILS # 2.8 10^3/uL (1.5-8.5); NEUTROPHILS % 80.3 % (36.0-66.0); PLATELET COUNT, AUTOMATED 102 10^3/uL (150-450); RED BLOOD COUNT 2.92 10^6/uL (4.30-6.10); WHITE BLOOD COUNT 3.5 10^3/uL (4.0-10.0)
[2022-07-27 07:23] LABS: ALBUMIN 2.4 GM/DL (3.2-5.2); BILIRUBIN,TOTAL 0.7 MG/DL (0.2-1.0); CALCIUM LEVEL 8.7 MG/DL (8.8-10.2); CREATININE FOR GFR 1.62 MG/DL (0.70-1.30); GLOMERULAR FILTRATION RATE 43.2 (>35); POTASSIUM SERUM 4.5 MEQ/L (3.5-5.1); TOTAL PROTEIN 6.1 GM/DL (6.4-8.2)
[2022-07-27] MEDS: amLODIPine 5 MG TAB PO SCH (07:56)
[2022-07-27] MEDS: INSULIN LISPRO (NovoLOG) PER UNIT SC SCH ×4 (07:56→20:21)
[2022-07-27] MEDS: METOPROLOL TART 25 MG TABLET PO SCH ×2 (07:56→20:56)
[2022-07-27] MEDS: MULTIVITAMINS/MINERALS THERAP 1 TAB PO SCH (07:57)
[2022-07-27] MEDS: SIMETHICONE 40MG/0.6ML DROPS 30ML PO SCH ×3 (07:57→17:33)
[2022-07-27] MEDS: MIRALAX *UNIT DOSE* 17GM PACKET PO SCH (07:57)
[2022-07-27] MEDS: OCUVITE 1 TAB PO SCH (07:57)
[2022-07-27] MEDS: FOLIC ACID 1MG TAB PO SCH (07:57)
[2022-07-27] MEDS: TAMSULOSIN 0.4 MG CAP PO SCH (07:57)
[2022-07-27] MEDS: OMEPRAZOLE 20MG CAP PO SCH (07:57)
[2022-07-27] MEDS: FINASTERIDE 5MG TAB PO SCH (07:57)
[2022-07-27] MEDS: BISACODYL 5 MG TAB PO SCH (07:57)
[2022-07-27] MEDS: ATORVASTATIN 20 MG TAB PO SCH (07:57)
[2022-07-27] MEDS: ASPIRIN 81MG ENTERIC TABLET PO SCH (07:57)
[2022-07-27] MEDS: SITagliptin 50 MG TAB (JANUVIA) PO SCH (07:57)
[2022-07-27] MEDS: LACTOBACILLUS ACIDOPHILUS CAP (BACID) PO SCH ×2 (07:57→17:32)
[2022-07-27] MEDS: TRIAMCINOLONE ACET 0.1% CREAM 80 GM TOP SCH (07:58)
[2022-07-27] MEDS: CLOPIDOGREL 75 MG TAB PO SCH (07:58)
[2022-07-27] MEDS: STIOLTO RESPIMAT INH SCH (07:58)
[2022-07-27] MEDS: POLYVINYL ALCOHOL OPHTH SOLN 15 ML(LIQUITEARS) OU SCH ×3 (07:59→20:56)
[2022-07-27] MEDS: NYSTATIN 100,000 UNITS/GM TOPICAL PWD 15 GM TOP SCH (07:59)
[2022-07-27] MEDS: ACETAMINOPHEN TAB 650MG DOSE (2X325MG) PO PRN (08:13)
[2022-07-27 14:00] VITALS: BP 104/66
[2022-07-27] MEDS: SODIUM CHLORIDE 1 GM TAB PO SCH ×2 (17:32→20:56)
[2022-07-27 20:23] VITALS: BP 118/68
[2022-07-27] MEDS ORDERED: KETOROLAC 30 MG/ML 1ML VIAL IV ONE (22:00)
[2022-07-27] MEDS: ONDANSETRON 4MG 2ML VIAL IV PRN (22:32)
[2022-07-28] MEDS: ALBUTEROL 90 MCG/ACT 8GM HFA INHALER INH SCH ×4 (04:00→11:18)
[2022-07-28 07:28] VITALS: BP 132/77
[2022-07-28 08:18] LABS: CALCIUM LEVEL 9.3 MG/DL (8.8-10.2); CREATININE FOR GFR 1.8 MG/DL (0.70-1.30); GLOMERULAR FILTRATION RATE 38.3 (>35); POTASSIUM SERUM 4.4 MEQ/L (3.5-5.1)
[2022-07-28] MEDS: MIRALAX *UNIT DOSE* 17GM PACKET PO SCH (08:53)
[2022-07-28] MEDS: FINASTERIDE 5MG TAB PO SCH (08:54)
[2022-07-28] MEDS: SODIUM CHLORIDE 1 GM TAB PO SCH ×3 (08:54→20:19)
[2022-07-28] MEDS: ONDANSETRON 4MG 2ML VIAL IV PRN (08:54)
[2022-07-28] MEDS: ASPIRIN 81MG ENTERIC TABLET PO SCH (08:55)
[2022-07-28] MEDS: INSULIN LISPRO (NovoLOG) PER UNIT SC SCH ×4 (08:55→20:20)
[2022-07-28] MEDS: OMEPRAZOLE 20MG CAP PO SCH (08:55)
[2022-07-28] MEDS: SITagliptin 50 MG TAB (JANUVIA) PO SCH (08:55)
[2022-07-28] MEDS: LACTOBACILLUS ACIDOPHILUS CAP (BACID) PO SCH ×2 (08:55→18:00)
[2022-07-28] MEDS: MULTIVITAMINS/MINERALS THERAP 1 TAB PO SCH (08:55)
[2022-07-28] MEDS: BISACODYL 5 MG TAB PO SCH (08:55)
[2022-07-28] MEDS: TAMSULOSIN 0.4 MG CAP PO SCH (08:55)
[2022-07-28] MEDS: OCUVITE 1 TAB PO SCH (08:56)
[2022-07-28] MEDS: CLOPIDOGREL 75 MG TAB PO SCH (08:56)
[2022-07-28] MEDS: ATORVASTATIN 20 MG TAB PO SCH (08:56)
[2022-07-28] MEDS: FOLIC ACID 1MG TAB PO SCH (08:56)
[2022-07-28] MEDS: amLODIPine 5 MG TAB PO SCH (08:56)
[2022-07-28] MEDS: METOPROLOL TART 25 MG TABLET PO SCH ×3 (08:57→20:20)
[2022-07-28] MEDS: SIMETHICONE 40MG/0.6ML DROPS 30ML PO SCH ×3 (08:57→18:00)
[2022-07-28] MEDS: POLYVINYL ALCOHOL OPHTH SOLN 15 ML(LIQUITEARS) OU SCH ×3 (08:57→20:21)
[2022-07-28] MEDS: TRIAMCINOLONE ACET 0.1% CREAM 80 GM TOP SCH (08:58)
[2022-07-28] MEDS: STIOLTO RESPIMAT INH SCH (08:58)
[2022-07-28 14:00] VITALS: BP 120/70
[2022-07-28] MEDS: BISACODYL 10 MG SUPP PR PRN (16:44)
[2022-07-28] MEDS: NS 1,000 ML IV SCH (16:45)
[2022-07-28 20:00] VITALS: BP 122/69
[2022-07-28] MEDS ORDERED: SYMBICORT 160/4.5MCG INHALER 6GM INH SCH (20:00)
[2022-07-28] MEDS: ACETAMINOPHEN TAB 650MG DOSE (2X325MG) PO PRN (20:20)
[2022-07-28] MEDS ORDERED: LEVALBUTEROL 1.25 MG/0.5 ML CONCENTRATE NEB INH PRN (20:45)
[2022-07-28] MEDS ORDERED: IPRATROPIUM 0.02% SOLN 0.5MG 2.5ML NEB INH PRN (20:45)
[2022-07-28] MEDS: RAMELTEON 8 MG TAB (ROZEREM) PO PRN (22:42)
[2022-07-29] VITALS (8 sets, daily range): BP systolic 105–129; BP diastolic 63–81
[2022-07-29] MEDS: NS 1,000 ML IV SCH (05:25)
[2022-07-29 06:24] LABS: HEMATOCRIT 23.5 % (42.0-52.0); HEMOGLOBIN 7.6 g/dl (13.5-17.5); MEAN CORPUSCULAR HEMOGLOBIN 29.3 pg (27.0-33.0); MEAN CORPUSCULAR HGB CONC 32.3 g/dl (32.0-36.5); MEAN CORPUSCULAR VOLUME 90.7 fl (80.0-96.0); PLATELET COUNT, AUTOMATED 119 10^3/uL (150-450); RED BLOOD COUNT 2.59 10^6/uL (4.30-6.10)
[2022-07-29 08:57] LABS: BASO % 0.2 % (0.0-1.0); HEMATOCRIT 24.1 % (42.0-52.0); HEMOGLOBIN 7.9 g/dl (13.5-17.5); LYMPH # 0.3 10^3/uL (1.5-5.0); MEAN CORPUSCULAR HEMOGLOBIN 29.7 pg (27.0-33.0); MEAN CORPUSCULAR HGB CONC 32.8 g/dl (32.0-36.5); MEAN CORPUSCULAR VOLUME 90.6 fl (80.0-96.0); MONO # 0.2 10^3/uL (0.0-0.8); MONO % 3.2 % (2.0-8.0); NEUTROPHILS # 4.2 10^3/uL (1.5-8.5); NEUTROPHILS % 89.1 % (36.0-66.0); PLATELET COUNT, AUTOMATED 121 10^3/uL (150-450); RED BLOOD COUNT 2.66 10^6/uL (4.30-6.10); WHITE BLOOD COUNT 4.7 10^3/uL (4.0-10.0)
[2022-07-29] MEDS: INSULIN LISPRO (NovoLOG) PER UNIT SC SCH ×4 (09:01→21:00)
[2022-07-29] MEDS: MULTIVITAMINS/MINERALS THERAP 1 TAB PO SCH (09:01)
[2022-07-29] MEDS: OMEPRAZOLE 20MG CAP PO SCH (09:02)
[2022-07-29] MEDS: BISACODYL 5 MG TAB PO SCH (09:02)
[2022-07-29] MEDS: TAMSULOSIN 0.4 MG CAP PO SCH (09:02)
[2022-07-29] MEDS: FOLIC ACID 1MG TAB PO SCH (09:02)
[2022-07-29] MEDS: CLOPIDOGREL 75 MG TAB PO SCH (09:02)
[2022-07-29] MEDS: ATORVASTATIN 20 MG TAB PO SCH (09:02)
[2022-07-29] MEDS: FINASTERIDE 5MG TAB PO SCH (09:02)
[2022-07-29] MEDS: SITagliptin 50 MG TAB (JANUVIA) PO SCH (09:02)
[2022-07-29] MEDS: SODIUM CHLORIDE 1 GM TAB PO SCH ×3 (09:02→21:02)
[2022-07-29] MEDS: ASPIRIN 81MG ENTERIC TABLET PO SCH (09:02)
[2022-07-29] MEDS: OCUVITE 1 TAB PO SCH (09:02)
[2022-07-29] MEDS: LACTOBACILLUS ACIDOPHILUS CAP (BACID) PO SCH ×2 (09:02→17:34)
[2022-07-29] MEDS: MIRALAX *UNIT DOSE* 17GM PACKET PO SCH (09:03)
[2022-07-29] MEDS: METOPROLOL TART 25 MG TABLET PO SCH ×3 (09:03→22:01)
[2022-07-29] MEDS: SIMETHICONE 40MG/0.6ML DROPS 30ML PO SCH ×3 (09:04→17:34)
[2022-07-29] MEDS: POLYVINYL ALCOHOL OPHTH SOLN 15 ML(LIQUITEARS) OU SCH ×3 (09:04→21:08)
[2022-07-29] MEDS: amLODIPine 5 MG TAB PO SCH (09:04)
[2022-07-29] MEDS: TRIAMCINOLONE ACET 0.1% CREAM 80 GM TOP SCH (09:04)
[2022-07-29 09:31] LABS: CALCIUM LEVEL 8.9 MG/DL (8.8-10.2); CREATININE FOR GFR 1.94 MG/DL (0.70-1.30); GLOMERULAR FILTRATION RATE 35.1 (>35); POTASSIUM SERUM 4.7 MEQ/L (3.5-5.1)
[2022-07-29] MEDS: guaiFENesin ER 600 MG TAB PO SCH ×2 (10:37→21:02)
[2022-07-29] MEDS: ENOXAPARIN 40MG/0.4ML SYRINGE (J1650 PER 10MG) SC SCH ×2 (13:13→21:07)
[2022-07-29] MEDS ORDERED: NYSTATIN 500,000 U/5 ML SUSP UDC SS SCH (21:00)
[2022-07-29] MEDS ORDERED: traZODone 25MG PER 1/2 TABLET PO PRN (21:15)
[2022-07-29 22:09] LABS: ABG O2 SATURATION 95.1 % (95.0-99.0); ABG PARTIAL PRESSURE CO2 27.4 mmHg (35.0-45.0); ABG PARTIAL PRESSURE O2 76.3 mmHg (75.0-100.0); ABG STANDARD HCO3 21.1 MEQ/L (22.0-26.0); ABG TOTAL CO2 19.8 MEQ/L (23.0-31.0); ABG pH (ARTERIAL) 7.458 UNITS (7.350-7.450)
[2022-07-29] MEDS ORDERED: dexameTHASONE 4 MG/ML 1ML VIAL (J1100 PER 1MG) IV SCH (23:30)
[2022-07-29] MEDS ORDERED: FUROSEMIDE 20MG/2ML VIAL (J1940) IV ONE (23:30)
[2022-07-29] MEDS ORDERED: cefTRIAXone SOD 1 GM in D5W MINI-BAG PLUS 50 ML IV SCH (23:30)
[2022-07-29 23:52] LABS: HEMATOCRIT 25.4 % (42.0-52.0); HEMOGLOBIN 8.4 g/dl (13.5-17.5)
[2022-07-30] MEDS ORDERED: LEVALBUTEROL 1.25 MG/0.5 ML CONCENTRATE NEB INH SCH
[2022-07-30] MEDS ORDERED: IPRATROPIUM 0.02% SOLN 0.5MG 2.5ML NEB INH SCH
[2022-07-30 01:44] VITALS: BP 115/72
[2022-07-30] MEDS ORDERED: NS 1,000 ML IV ONE (01:55)
[2022-07-30] MEDS ORDERED: DOXYCYCLINE HYCLATE 100 MG in D5W MINI-BAG PLUS 100 ML IV SCH (03:00)
== END 2022-07-30 02:20 | disposition short-term general hospital (02) | DRG 56 ==
LOC: M PM&R 17:21
PROVIDERS: ADMIT Physical Medicine & Rehabilitation; ATTEND Physical Medicine & Rehabilitation
PROC: 30233N1 Transfusion of Nonautologous Red Blood Cells into Peripheral Vein, Percutaneous Approach (ICD-10-PCS; principal; 2022-07-29)
DX: I69.351 Hemiplegia and hemiparesis following cerebral infarction affecting right dominant side (principal); U07.1 COVID-19; A41.9 Sepsis, unspecified organism; R47.01 Aphasia; N17.9 Acute kidney failure, unspecified; B37.0 Candidal stomatitis; I69.391 Dysphagia following cerebral infarction; R13.10 Dysphagia, unspecified; I69.320 Aphasia following cerebral infarction; E78.5 Hyperlipidemia, unspecified; J44.9 Chronic obstructive pulmonary disease, unspecified; N18.30 Chronic kidney disease, stage 3 unspecified; I25.2 Old myocardial infarction; E11.51 Type 2 diabetes mellitus with diabetic peripheral angiopathy without gangrene; M19.90 Unspecified osteoarthritis, unspecified site; E87.6 Hypokalemia; N40.0 Benign prostatic hyperplasia without lower urinary tract symptoms; D69.6 Thrombocytopenia, unspecified; Z85.118 Personal history of other malignant neoplasm of bronchus and lung; Z79.899 Other long term (current) drug therapy; Z79.82 Long term (current) use of aspirin; I25.10 Atherosclerotic heart disease of native coronary artery without angina pectoris; I12.9 Hypertensive chronic kidney disease with stage 1 through stage 4 chronic kidney disease, or unspecified chronic kidney disease; Z87.891 Personal history of nicotine dependence; Z66 Do not resuscitate; R31.9 Hematuria, unspecified; R33.9 Retention of urine, unspecified; D64.9 Anemia, unspecified

== ENCOUNTER 2022-07-30 02:17 | Inpatient (IN) | payer MEDICARE, BC ==
[~2022-07-30] VITALS: Ht 172.7 cm; Wt 105.2 kg
[2022-07-30] VITALS (29 sets, daily range): BP systolic 94–120; BP diastolic 60–76; O2SAT 96
[~2022-07-30 02:17] MED LIST: ACET500T15 PO; AMLO1TAB24 PO; ASPI81TA26 PO; ATOR80TA59 PO; CENT1TAB PO; CLOP75TA2 PO; DOCU100C16 PO; FINA5TAB2 PO; FLOM0.4C39 PO; METO25TA4 PO; NITR4TASL SL; OCUV1CAP4 PO; OMEP-173 PO; PROAAER10 INH; SITA50TAB PO; STIO1AER INH; SYST0.6S OU; SYST1SOL OU
[2022-07-30] MEDS ORDERED: GLUCAGON INJ 1MG VIAL SC PRN (02:55)
[2022-07-30] MEDS ORDERED: HEPARIN SOD (PORCINE) 5000UNITS/ML 1ML VIAL/SYRINGE IV ONE (02:55)
[2022-07-30] MEDS ORDERED: ALBUTEROL SULFATE 2.5 MG/0.5 ML INH NEB SOLN NEB PRN (02:55)
[2022-07-30] MEDS ORDERED: NS 1,000 ML IV SCH (02:55)
[2022-07-30] MEDS ORDERED: GLUCOSE 4GM CHEW TABLET PO PRN (02:55)
[2022-07-30] MEDS ORDERED: HEPARIN SOD (PORCINE) 5000UNITS/ML 1ML VIAL/SYRINGE IV PRN ×2 (02:55→09:40)
[2022-07-30] MEDS ORDERED: DEXTROSE 50% 50 ML SYRINGE IV PRN (02:55)
[2022-07-30] MEDS ORDERED: HEPARIN DRIP 25,000 UNITS in IV 1 EA IV SCH (02:55)
[2022-07-30] MEDS: IPRATROPIUM 0.5MG/ALBUTEROL 2.5MG INH SOL UD 3ML (DUONEB) NEB SCH ×4 (03:32→18:57)
[2022-07-30 03:47] LABS: HEMOGLOBIN 7.9 g/dl (13.5-17.5); MEAN CORPUSCULAR HEMOGLOBIN 28.9 pg (27.0-33.0); MEAN CORPUSCULAR HGB CONC 32.9 g/dl (32.0-36.5); MEAN CORPUSCULAR VOLUME 87.9 fl (80.0-96.0); PLATELET COUNT, AUTOMATED 148 10^3/uL (150-450); RED BLOOD COUNT 2.73 10^6/uL (4.30-6.10); WHITE BLOOD COUNT 6.7 10^3/uL (4.0-10.0)
[2022-07-30] MEDS ORDERED: DOXYCYCLINE HYCLATE 100 MG in D5W MINI-BAG PLUS 100 ML IV SCH (04:00)
[2022-07-30 04:54] LABS: BILIRUBIN,TOTAL 0.9 MG/DL (0.2-1.0); CALCIUM LEVEL 8.7 MG/DL (8.8-10.2); CREATININE FOR GFR 2.44 MG/DL (0.70-1.30); GLOMERULAR FILTRATION RATE 26.9 (>35); POTASSIUM SERUM 5.2 MEQ/L (3.5-5.1)
[2022-07-30] MEDS ORDERED: metroNIDAZOLE 500 MG in IV 1 EA IV SCH (05:00)
[2022-07-30] MEDS ORDERED: INSULIN LISPRO (NovoLOG) PER UNIT SC SCH ×2 (06:00→21:00)
[2022-07-30] MEDS ORDERED: HOME MED LIST COMPLETE! XX SCH (06:30)
[2022-07-30] MEDS ORDERED: NITROGLYCERIN 0.4 MG SUBL TABLET SL PRN (06:50)
[2022-07-30] MEDS ORDERED: methylPREDNISolone 40MG 1ML VIAL IV SCH (08:00)
[2022-07-30] MEDS ORDERED: VANCOMYCIN HCL 750 MG, VIAL MATE ADAPTER 1 EACH in NS 250 ML IV SCH (08:40)
[2022-07-30] MEDS ORDERED: ENOXAPARIN 100MG/1ML SYRINGE (J1650 PER 10MG) SC SCH (08:40)
[2022-07-30 08:41] LABS: HEMATOCRIT 23.7 % (42.0-52.0); HEMOGLOBIN 7.7 g/dl (13.5-17.5); MEAN CORPUSCULAR HEMOGLOBIN 28.9 pg (27.0-33.0); MEAN CORPUSCULAR HGB CONC 32.5 g/dl (32.0-36.5); MEAN CORPUSCULAR VOLUME 89.1 fl (80.0-96.0); PLATELET COUNT, AUTOMATED 133 10^3/uL (150-450); RED BLOOD COUNT 2.66 10^6/uL (4.30-6.10); WHITE BLOOD COUNT 5.2 10^3/uL (4.0-10.0)
[2022-07-30] MEDS ORDERED: REMDESIVIR 200 MG in NS 250 ML IV ONE (08:50)
[2022-07-30] MEDS ORDERED: amLODIPine 5 MG TAB PO SCH (09:00)
[2022-07-30] MEDS ORDERED: LEVEMIR (INSULIN DETEMIR) 1 UNITS/0.01ML SC SCH (09:00)
[2022-07-30] MEDS ORDERED: ASPIRIN 300 MG SUPP PR SCH (09:00)
[2022-07-30] MEDS ORDERED: BARICITINIB 2MG TABLET (OLUMIANT) FOR EUA PO SCH (09:00)
[2022-07-30 09:08] LABS: CALCIUM LEVEL 9.2 MG/DL (8.8-10.2); CREATININE FOR GFR 2.57 MG/DL (0.70-1.30); GLOMERULAR FILTRATION RATE 25.4 (>35); POTASSIUM SERUM 5.5 MEQ/L (3.5-5.1)
[2022-07-30 09:09] LABS: ALBUMIN 1.9 GM/DL (3.2-5.2); BILIRUBIN,TOTAL 0.8 MG/DL (0.2-1.0)
[2022-07-30 09:24] LABS: INR 1.42; PROTHROMBIN TIME 17.8 SECONDS (12.7-14.5)
[2022-07-30 09:26] LABS: PARTIAL THROMBOPLASTIN TIME 63.7 SECONDS (25.9-37.0)
[2022-07-30 09:30] LABS: FIBRINOGEN 1237 MG/DL (268-480)
[2022-07-30 09:43] LABS: D-DIMER QUANT > 4000 ng/ml (<500)
[2022-07-30 09:54] LABS: ABG BASE EXCESS -5.2 (-2.0-2.0); ABG HCO3 18.3 MEQ/L (22.0-26.0); ABG O2 SATURATION 94.5 % (95.0-99.0); ABG PARTIAL PRESSURE CO2 28.1 mmHg (35.0-45.0); ABG PARTIAL PRESSURE O2 75.8 mmHg (75.0-100.0); ABG STANDARD HCO3 20.1 MEQ/L (22.0-26.0); ABG TOTAL CO2 19.1 MEQ/L (23.0-31.0); ABG pH (ARTERIAL) 7.431 UNITS (7.350-7.450)
[2022-07-30 10:00] LABS: CK-MB VALUE MASS 1.9 NG/ML (<3.6); MB/CK RELATIVE INDEX 3.39 (< OR =4)
[2022-07-30] MEDS ORDERED: CEFEPIME HCL 1 GM in D5W MINI-BAG PLUS 50 ML IV SCH (10:00)
[2022-07-30] MEDS: NYSTATIN 100,000 UNITS/GM TOPICAL PWD 15 GM TOP SCH ×2 (10:00→20:34)
[2022-07-30 10:15] LABS: PERCENT SATURATION 14.2 % (19.7-50.0)
[2022-07-30] MEDS: CLOPIDOGREL 75 MG TAB PO SCH (10:27)
[2022-07-30] MEDS: ASPIRIN 81 MG CHEW TABLET PO SCH (10:27)
[2022-07-30] MEDS: ATORVASTATIN 20 MG TAB PO SCH (10:28)
[2022-07-30] MEDS: FINASTERIDE 5MG TAB PO SCH ×2 (10:28→10:31)
[2022-07-30] MEDS: dexameTHASONE 4 MG/ML 1ML VIAL (J1100 PER 1MG) IV SCH (10:30)
[2022-07-30] MEDS: METOPROLOL TART 25 MG TABLET PO SCH ×2 (10:30→20:33)
[2022-07-30] MEDS ORDERED: SODIUM CHLORIDE 0.9% INJ 10 ML SYR IV ONE (10:50)
[2022-07-30] MEDS: HEPARIN DRIP 25,000 UNITS in IV 1 EA IV SCH ×2 (10:55→22:47)
[2022-07-30] MEDS: TAMSULOSIN 0.4 MG CAP PO SCH (11:20)
[2022-07-30] MEDS: PANTOPRAZOLE 40MG TAB (PROTONIX) PO SCH (11:21)
[2022-07-30] MEDS: PIPERACILLIN/TAZOBACTAM SOD 3.375 GM in D5W MINI-BAG PLUS 50 ML IV SCH ×3 (11:22→22:47)
[2022-07-30] MEDS: INSULIN LISPRO (NovoLOG) PER UNIT SC SCH ×2 (11:22→17:50)
[2022-07-30 14:10] LABS: CK-MB VALUE MASS 2.3 NG/ML (<3.6); MB/CK RELATIVE INDEX 4.69 (< OR =4)
[2022-07-30 18:43] LABS: HEMATOCRIT 28.7 % (42.0-52.0); HEMOGLOBIN 9.4 g/dl (13.5-17.5); MEAN CORPUSCULAR HEMOGLOBIN 29.3 pg (27.0-33.0); MEAN CORPUSCULAR HGB CONC 32.8 g/dl (32.0-36.5); MEAN CORPUSCULAR VOLUME 89.4 fl (80.0-96.0); PLATELET COUNT, AUTOMATED 134 10^3/uL (150-450); RED BLOOD COUNT 3.21 10^6/uL (4.30-6.10); WHITE BLOOD COUNT 4.7 10^3/uL (4.0-10.0)
[2022-07-30 19:34] LABS: CK-MB VALUE MASS 2.1 NG/ML (<3.6); MB/CK RELATIVE INDEX 3.96 (< OR =4)
[2022-07-30] MEDS ORDERED: NS 250 ML IV ONE ×2 (20:20→22:10)
[2022-07-31] VITALS: BP 119/72
[2022-07-31] MEDS ORDERED: cefTRIAXone SOD 1 GM in D5W MINI-BAG PLUS 50 ML IV SCH ×2
[2022-07-31 01:31] LABS: INR 1.41; PROTHROMBIN TIME 17.7 SECONDS (12.7-14.5)
[2022-07-31 01:33] LABS: PARTIAL THROMBOPLASTIN TIME 105.7 SECONDS (25.9-37.0)
[2022-07-31] MEDS: IPRATROPIUM 0.5MG/ALBUTEROL 2.5MG INH SOL UD 3ML (DUONEB) NEB SCH ×3 (01:34→13:15)
[2022-07-31 01:35] VITALS: O2SAT 95
[2022-07-31 04:00] VITALS: BP 121/70
[2022-07-31] MEDS: PIPERACILLIN/TAZOBACTAM SOD 3.375 GM in D5W MINI-BAG PLUS 50 ML IV SCH ×2 (04:59→11:14)
[2022-07-31 06:11] LABS: INR 1.37; PROTHROMBIN TIME 17.3 SECONDS (12.7-14.5)
[2022-07-31 06:13] LABS: PARTIAL THROMBOPLASTIN TIME 78.7 SECONDS (25.9-37.0)
[2022-07-31] MEDS ORDERED: NS 500 ML IV ONE (06:30)
[2022-07-31] MEDS ORDERED: NS 1,000 ML IV SCH (06:30)
[2022-07-31] MEDS ORDERED: FUROSEMIDE 40MG/4ML VIAL (J1940) IV ONE (07:45)
[2022-07-31 08:31] LABS: HEMATOCRIT 26.9 % (42.0-52.0); HEMOGLOBIN 9.1 g/dl (13.5-17.5); MEAN CORPUSCULAR HEMOGLOBIN 29.4 pg (27.0-33.0); MEAN CORPUSCULAR HGB CONC 33.8 g/dl (32.0-36.5); MEAN CORPUSCULAR VOLUME 87.1 fl (80.0-96.0); PLATELET COUNT, AUTOMATED 156 10^3/uL (150-450); RED BLOOD COUNT 3.09 10^6/uL (4.30-6.10); WHITE BLOOD COUNT 5.4 10^3/uL (4.0-10.0)
[2022-07-31] MEDS ORDERED: REMDESIVIR 100 MG in NS 250 ML IV SCH (08:50)
[2022-07-31] MEDS ORDERED: LEVEMIR (INSULIN DETEMIR) 1 UNITS/0.01ML SC SCH ×2 (09:00→21:00)
[2022-07-31 09:07] LABS: CK-MB VALUE MASS 2.8 NG/ML (<3.6); MB/CK RELATIVE INDEX 4.83 (< OR =4)
[2022-07-31 09:08] LABS: ALBUMIN 2.1 GM/DL (3.2-5.2); BILIRUBIN,TOTAL 0.8 MG/DL (0.2-1.0); CALCIUM LEVEL 8.7 MG/DL (8.8-10.2); CREATININE FOR GFR 2.74 MG/DL (0.70-1.30); GLOMERULAR FILTRATION RATE 23.6 (>35); POTASSIUM SERUM 4.9 MEQ/L (3.5-5.1); TOTAL PROTEIN 6.4 GM/DL (6.4-8.2)
[2022-07-31] MEDS: INSULIN LISPRO (NovoLOG) PER UNIT SC SCH ×2 (09:23→12:40)
[2022-07-31] MEDS: ASPIRIN 81 MG CHEW TABLET PO SCH (09:26)
[2022-07-31 09:30] VITALS: BP 121/79
[2022-07-31] MEDS: CLOPIDOGREL 75 MG TAB PO SCH (09:30)
[2022-07-31] MEDS: METOPROLOL TART 25 MG TABLET PO SCH (09:30)
[2022-07-31] MEDS: PANTOPRAZOLE 40MG TAB (PROTONIX) PO SCH (09:30)
[2022-07-31] MEDS: ATORVASTATIN 20 MG TAB PO SCH (09:30)
[2022-07-31] MEDS: TAMSULOSIN 0.4 MG CAP PO SCH (09:31)
[2022-07-31] MEDS: FINASTERIDE 5MG TAB PO SCH (09:31)
[2022-07-31] MEDS: dexameTHASONE 4 MG/ML 1ML VIAL (J1100 PER 1MG) IV SCH (09:32)
[2022-07-31] MEDS: NYSTATIN 100,000 UNITS/GM TOPICAL PWD 15 GM TOP SCH (09:32)
[2022-07-31] MEDS ORDERED: SODIUM CHLORIDE 0.9% INJ 10 ML SYR IV SCH (09:50)
[2022-07-31] MEDS ORDERED: LEVEMIR (INSULIN DETEMIR) 1 UNITS/0.01ML SC ONE (10:35)
[2022-07-31] MEDS: HEPARIN DRIP 25,000 UNITS in IV 1 EA IV SCH (14:05)
[2022-07-31] MEDS ORDERED: SCOPOLAMINE 1MG TRANSDERMAL PATCH TOP PRN (15:35)
[2022-07-31 20:00] VITALS: BP 121/79
[2022-07-31 21:35] VITALS: BP 122/80
[2022-07-31] MEDS: MORPHINE 10MG/0.5ML ORAL CONCENTRATE SOLUTION U/D SL PRN (21:37)
[2022-08-01] MEDS: MORPHINE 10MG/0.5ML ORAL CONCENTRATE SOLUTION U/D SL PRN ×4 (01:18→21:47)
[2022-08-01] MEDS: LORazepam 1 MG TAB PO PRN ×4 (05:00→21:46)
[2022-08-02] MEDS: LORazepam 1 MG TAB PO PRN ×2 (00:59→03:54)
[2022-08-02] MEDS: MORPHINE 10MG/0.5ML ORAL CONCENTRATE SOLUTION U/D SL PRN ×5 (01:00→21:20)
[2022-08-02] MEDS ORDERED: MORPHINE 4 MG/ML 1ML VIAL/SYRINGE IV PRN (02:10)
[2022-08-02] MEDS ORDERED: MORPHINE 2 MG/ML 1ML VIAL IV PRN (06:05)
[2022-08-02] MEDS: LORazepam 2 MG TAB PO PRN ×4 (10:29→22:37)
[2022-08-02 15:07] LABS: BODY FLUID CULTURE Not indicated. (.); LEGIONELLA ANTIGEN URINE Negative (Negative); ORGANISM ID Not indicated. (.); SPECIMEN SOURCE Urine (.); URINE STREP PNEUMONIAE ANTIGEN Negative (Negative)
[2022-08-02] MEDS: ATROPINE SULFATE 1% OP SOLN 2 ML BTL SL PRN (16:54)
[2022-08-03] MEDS: MORPHINE 10MG/0.5ML ORAL CONCENTRATE SOLUTION U/D SL PRN ×4 (01:05→15:37)
[2022-08-03] MEDS: LORazepam 2 MG TAB PO PRN (09:22)
[2022-08-03] MEDS ORDERED: LORazepam 2 MG TAB PO PRN (10:05)
[2022-08-03] MEDS: ATROPINE SULFATE 1% OP SOLN 2 ML BTL SL PRN (12:47)
== END 2022-08-03 16:17 | disposition expired | DRG 871 ==
LOC: M ICU 02:24 → M MSPAV 08-01 08:51
PROVIDERS: ADMIT Internal Medicine; ATTEND Internal Medicine
PROC: 30233N1 Transfusion of Nonautologous Red Blood Cells into Peripheral Vein, Percutaneous Approach (ICD-10-PCS; principal; 2022-07-30)
DX: A41.9 Sepsis, unspecified organism (principal); U07.1 COVID-19; J15.9 Unspecified bacterial pneumonia; J96.01 Acute respiratory failure with hypoxia; I50.33 Acute on chronic diastolic (congestive) heart failure; N17.0 Acute kidney failure with tubular necrosis; I26.99 Other pulmonary embolism without acute cor pulmonale; J69.0 Pneumonitis due to inhalation of food and vomit; E87.2 Acidosis; J91.8 Pleural effusion in other conditions classified elsewhere; D62 Acute posthemorrhagic anemia; I69.351 Hemiplegia and hemiparesis following cerebral infarction affecting right dominant side; I13.0 Hypertensive heart and chronic kidney disease with heart failure and stage 1 through stage 4 chronic kidney disease, or unspecified chronic kidney disease; E87.1 Hypo-osmolality and hyponatremia; E87.3 Alkalosis; K56.609 Unspecified intestinal obstruction, unspecified as to partial versus complete obstruction; I24.9 Acute ischemic heart disease, unspecified; I82.401 Acute embolism and thrombosis of unspecified deep veins of right lower extremity; Z90.2 Acquired absence of lung [part of]; Z85.118 Personal history of other malignant neoplasm of bronchus and lung; I25.10 Atherosclerotic heart disease of native coronary artery without angina pectoris; I69.320 Aphasia following cerebral infarction; N18.30 Chronic kidney disease, stage 3 unspecified; E11.22 Type 2 diabetes mellitus with diabetic chronic kidney disease; E78.5 Hyperlipidemia, unspecified; N40.0 Benign prostatic hyperplasia without lower urinary tract symptoms; M13.0 Polyarthritis, unspecified; I25.2 Old myocardial infarction; E11.51 Type 2 diabetes mellitus with diabetic peripheral angiopathy without gangrene; Z66 Do not resuscitate; J44.9 Chronic obstructive pulmonary disease, unspecified; D69.6 Thrombocytopenia, unspecified; Z95.5 Presence of coronary angioplasty implant and graft; Z87.891 Personal history of nicotine dependence; Z79.82 Long term (current) use of aspirin; Z79.899 Other long term (current) drug therapy; I48.0 Paroxysmal atrial fibrillation; I65.22 Occlusion and stenosis of left carotid artery; R74.01 Elevation of levels of liver transaminase levels; E87.5 Hyperkalemia